=== PATIENT | female | born 1980 | race Caucasian/White ===

== ENCOUNTER 2021-09-22 10:46 | Inpatient (IN) | payer OTHER, SELFPAY ==
--- NOTE | 2021-09-22 11:44 | ED_ITS ---
HPI - Psych General Chief Complaint: Psychiatric Symptoms Stated Complaint: SI Time Seen by Provider: 09/22/21 11:18 Source: patient Mode of arrival: ambulatory Limitations: no limitations History of Present Illness HPI Narrative: inpatient bed search from community per CARE team seen by [facility] weeks of depression trying therapy at home - hx of bipolar doesn't want to get out of bed, taking her medications, making SI statements to family of note has two days left of augmentin for cat bite left thumb complaint: suicidal ideation, feels depressed and anxiety Onset (ago): week(s) (few) Duration: getting worse History of same: Yes Relieving factors: none Exacerbating factors: none Context: other Associated psychiatric symptoms: depression and suicidal ideation Associated symptoms: denies other symptoms Treatments prior to arrival: placed on mental health hold If self harm: admits thoughts of self harm (no plan) Related Data Allergies Allergy/AdvReac Type Severity Reaction Status Date / Time Unable to Assess Allergy Verified 09/22/21 11:39 Review of Systems Review of Systems: Constitutional : No Fever, No Chills ENT/Mouth : No Ear Pain, No Nasal Congestion, No sore throat Eyes: No Eye Pain, No Swelling, No Redness Cardiovascular : No Chest Pain, No SOB Respiratory : No Cough, No Sputum, No Dyspnea Gastrointestinal : No Nausea, No Vomiting, No Diarrhea, No Hematochezia, No Melena Genitourinary : No Dysuria, No Urinary Frequency, No Hematuria Musculoskeletal : No Myalgias Skin : No Skin Lesions, No rash Neuro : No Weakness, No Numbness, No Paresthesias, No Dizziness, No Headache Psych : positive Anxiety, positive Depression, positive SI no HI Heme/Lymph: No Lymphadenopathy Endocrine : No Polyuria, No Polydipsia All other systems reviewed and are negative [facility] Past Medical History Attestation statement: The following information was validated with the patient. Medical History Bipolar 1 disorder Social History Social History (Updated 09/22/21 @ 11:54 by Chata Garcia DO) Patient Tobacco Use Status: Never used Tobacco Advance Directives: No Advance Directives Information Provided: No Physical Exam Vital Signs: Vital Signs: Last Vital Signs Temp 98 F 09/22/21 12:09 Pulse 112 H 09/22/21 12:09 Resp 18 09/22/21 12:09 BP 146/69 H 09/22/21 12:09 Pulse Ox 96 09/22/21 12:09 O2 Del Method 09/22/21 12:09 BMI result Body Mass Index 23.8 Appearance: Alert. Oriented X3. Anxious crying mild acute distress. Eyes: Pupils equal, round and reactive to light. ENT: Pharynx normal. Neck: Normal inspection. Neck supple. CVS: tachycardic heart rate and rhythm. Pulses normal. Respiratory: No respiratory distress. Breath sounds normal. Abdomen: Soft and nontender. Skin: Skin warm and dry. Normal skin color. Normal skin turgor. Extremities: No lower extremity edema. No calf ttp Thumb is healing well Neuro: Oriented X 3. No motor deficit. No sensory deficit. CN 2-12 intact Course Course Course Narrative: Physician observation started at 1155am. Patient placed in physician observation because the patient needed more time for placement given SI and S12 bed search from community. At the time observation was started the patient's vitals were stable, patient is alert and oriented but anxious and upset medications are ordered, Neuro: nonfocal, Lungs clear plan to admit to M5 MDM - Psych MDM Narrative Medical decision making narrative: 41 yo female with hx of bipolar states she has been more depressed, family reports SI statements being made she is already bed search S12 from community at this time will need labs, COVID swab, complete her augmentin x 2 days though cat bite looks well no signs of cellulitis, PO klonopin for anxiety. Patient is more calm after I discussed what she can expect in the pod. Lab Data Result diagrams: 09/22/21 13:28 09/22/21 13:28 Labs: Lab Results 09/22/21 09/22/21 09/22/21 Range/Units 11:47 11:47 13:28 WBC 8.5 (4.8-10.8) X10*3/uL RBC 5.05 (4.20-5.50) X10*6/uL Hgb 14.2 (12.0-16.0) g/dl Hct 44.5 (37.0-47.0) % MCV 88.1 (80.0-98.0) fL MCH 28.1 (27.0-33.0) pg MCHC 31.9 (31.0-35.0) g/dl RDW 13.3 (11.0-16.0) % Plt Count 225 (160-400) X10*3/uL MPV 10.3 (9.4-12.3) fL Immature Gran % (Auto) 0.5 H (0.0-0.4) % Neut % (Auto) 87.9 H (45-73) % Lymph % (Auto) 6.8 L (20-40) % Bollinger % (Auto) 4.4 (2-11) % Eos % (Auto) 0.2 (0-4) % Baso % (Auto) 0.2 (0-2) % Lymph # (Auto) 0.6 L (1.2-4.9) X10*3/uL Bollinger # (Auto) 0.4 (0.1-1.2) X10*3/uL Eos # (Auto) 0.0 (0.0-0.4) X10*3/uL Baso # (Auto) 0.0 (0.0-0.2) X10*3/uL Abs Immat Gran (auto) 0.04 H (0.00-0.03) X10*3/uL Absolute Neuts (auto) 7.5 (2.0-8.3) x10*3/uL Absolute Nucleated RBC 0.000 (0.0-0.012) X10*3/uL Nucleated RBC % (auto) 0.0 (0.0-0.2) /100WBC Sodium (135-145) mmol/L Potassium (3.3-5.1) mmol/L Chloride (96-108) mmol/L Carbon Dioxide (22-29) mmol/L Anion Gap (12-20) BUN (9-16) mg/dL Creatinine (0.5-1.4) mg/dL Estim Creat Clear Calc Estimated GFR Random Glucose (60-115) mg/dL Calcium (8.4-10.2) mg/dL Magnesium (1.6-2.6) mg/dL Total Bilirubin (0.0-1.0) mg/dL Direct Bilirubin (0.0-0.5) mg/dL AST (5-31) U/L ALT (0-31) U/L Alkaline Phosphatase (39-117) U/L Total Protein (6.5-8.0) g/dL Albumin (3.5-5.0) g/dL Beta HCG, Quant mIU/mL Urine Opiates Screen Not Detected (Not Detect) Urine Fentanyl Screen Not Detected (Not Detect) Ur Barbiturates Screen Not Detected (Not Detect) Ur Phencyclidine Scrn Not Detected (Not Detect) Ur Amphetamines Screen Not Detected (Not Detect) U Benzodiazepines Scrn Not Detected (Not Detect) Urine Cocaine Screen Not Detected (Not Detect) U Marijuana (THC) Screen POSITIVE H (Not Detect) Ethyl Alcohol mg/dL COVID-19 (PATRICIA) Negative (Negative) COVID-19 Clin Com See Note 09/22/21 Range/Units 13:28 WBC (4.8-10.8) X10*3/uL RBC (4.20-5.50) X10*6/uL Hgb (12.0-16.0) g/dl Hct (37.0-47.0) % MCV (80.0-98.0) fL MCH (27.0-33.0) pg MCHC (31.0-35.0) g/dl RDW (11.0-16.0) % Plt Count (160-400) X10*3/uL MPV (9.4-12.3) fL Immature Gran % (Auto) (0.0-0.4) % Neut % (Auto) (45-73) % Lymph % (Auto) (20-40) % Bollinger % (Auto) (2-11) % Eos % (Auto) (0-4) % Baso % (Auto) (0-2) % Lymph # (Auto) (1.2-4.9) X10*3/uL Bollinger # (Auto) (0.1-1.2) X10*3/uL Eos # (Auto) (0.0-0.4) X10*3/uL Baso # (Auto) (0.0-0.2) X10*3/uL Abs Immat Gran (auto) (0.00-0.03) X10*3/uL Absolute Neuts (auto) (2.0-8.3) x10*3/uL Absolute Nucleated RBC (0.0-0.012) X10*3/uL Nucleated RBC % (auto) (0.0-0.2) /100WBC Sodium 140 (135-145) mmol/L Potassium 4.5 (3.3-5.1) mmol/L Chloride 104 (96-108) mmol/L Carbon Dioxide 26 (22-29) mmol/L Anion Gap 15 (12-20) BUN 7 L (9-16) mg/dL Creatinine 0.79 (0.5-1.4) mg/dL Estim Creat Clear Calc 74.8 Estimated GFR > 60 Random Glucose 98 (60-115) mg/dL Calcium 9.2 (8.4-10.2) mg/dL Magnesium 1.8 (1.6-2.6) mg/dL Total Bilirubin < 0.2 (0.0-1.0) mg/dL Direct Bilirubin < 0.2 (0.0-0.5) mg/dL AST 13 (5-31) U/L ALT 9 (0-31) U/L Alkaline Phosphatase 74 (39-117) U/L Total Protein 7.4 (6.5-8.0) g/dL Albumin 4.4 (3.5-5.0) g/dL Beta HCG, Quant < 2 mIU/mL Urine Opiates Screen (Not Detect) Urine Fentanyl Screen (Not Detect) Ur Barbiturates Screen (Not Detect) Ur Phencyclidine Scrn (Not Detect) Ur Amphetamines Screen (Not Detect) U Benzodiazepines Scrn (Not Detect) Urine Cocaine Screen (Not Detect) U Marijuana (THC) Screen (Not Detect) Ethyl Alcohol < 10 mg/dL COVID-19 (PATRICIA) (Negative) COVID-19 Clin Com Discharge Plan Discharge Clinical Impression: Suicidal ideation Patient Disposition: Admitted As Inpatient
[2021-09-22 12:09] VITALS: BP 146/69; PULSE 112; RESP 18; TEMP 36.6; O2SAT 96; BMI 23.8
[2021-09-22 12:13] LABS: COVID-19 Test Negative (Negative)
[2021-09-22 12:15] LABS: Amphetamine Screen Urine Not Detected (Not Detect); Barbiturates, Urine Not Detected (Not Detect); Benzodiazepines Screen Urine Not Detected (Not Detect); Cannabinoid Screen Urine POSITIVE (Not Detect); Cocaine Screen Urine Not Detected (Not Detect); Fentanyl, urine Not Detected (Not Detect); Opiate Screen Urine Not Detected (Not Detect); Phencyclidine Screen Urine Not Detected (Not Detect)
[2021-09-22] MEDS: clonazePAM 1 MG TABLET PO (12:16)
[2021-09-22] MEDS: Ondansetron ODT 4 MG TAB.RAPDIS TRANSLINGU (12:22)
[2021-09-22] MEDS: Acetaminophen 325 MG TABLET 650 MG PO (13:04)
[2021-09-22 13:36] LABS: MANUAL DIFF FLAG NO
[2021-09-22 13:53] LABS: Basophils Percent Auto 0.2 % (0-2); Eosinophils Percent Auto 0.2 % (0-4); Hematocrit 44.5 % (37.0-47.0); Hemoglobin 14.2 g/dl (12.0-16.0); Imm Gran Abs Auto 0.04 X10*3/uL (0.00-0.03); Imm Gran Pct Auto 0.5 % (0.0-0.4); Lymphocytes Absolute Auto 0.6 X10*3/uL (1.2-4.9); Lymphocytes Percent Auto 6.8 % (20-40); Mean Corpuscular HGB Conc 31.9 g/dl (31.0-35.0); Mean Corpuscular Hemoglobin 28.1 pg (27.0-33.0); Mean Corpuscular Volume 88.1 fL (80.0-98.0); Mean Platelet Volume 10.3 fL (9.4-12.3); Monocytes Absolute Auto 0.4 X10*3/uL (0.1-1.2); Monocytes Percent Auto 4.4 % (2-11); Neutrophils Absolute Auto 7.5 x10*3/uL (2.0-8.3); Neutrophils Percent Auto 87.9 % (45-73); Platelet Count 225 X10*3/uL (160-400); Red Blood Count 5.05 X10*6/uL (4.20-5.50); Red Cell Distribution Width 13.3 % (11.0-16.0); White Blood Count 8.5 X10*3/uL (4.8-10.8)
[2021-09-22 13:54] LABS: Alanine Aminotransferase 9 U/L (0-31); Albumin Level 4.4 g/dL (3.5-5.0); Alkaline Phosphatase 74 U/L (39-117); Anion Gap 15 (12-20); Aspartate Amino Transferase 13 U/L (5-31); Bilirubin Direct < 0.2 mg/dL (0.0-0.5); Bilirubin Total < 0.2 mg/dL (0.0-1.0); Blood Urea Nitrogen 7 mg/dL (9-16); Calcium 9.2 mg/dL (8.4-10.2); Carbon Dioxide 26 mmol/L (22-29); Chloride 104 mmol/L (96-108); Creatinine Clr Calc Pharmacy 74.8; Estimated Glomerular Filt Rate > 60; Ethanol < 10 mg/dL; Glucose Random 98 mg/dL (60-115); Magnesium 1.8 mg/dL (1.6-2.6); Potassium 4.5 mmol/L (3.3-5.1); Sodium 140 mmol/L (135-145); Total Protein 7.4 g/dL (6.5-8.0)
[2021-09-22 14:01] LABS: HCG Quantitative < 2 mIU/mL
[2021-09-22 16:40] VITALS: BP 116/71; PULSE 90; TEMP 36.2; O2SAT 98
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
[2021-09-22] MEDS: clonazePAM 0.5 MG TABLET PO (22:20)
[2021-09-22] MEDS: Amoxicillin/Potassium Clav 875 MG TABLET PO (22:20)
[2021-09-23 06:00] VITALS: BP 136/68; PULSE 90; RESP 18; TEMP 36.1; O2SAT 99
[2021-09-23] MEDS: Sertraline HCL 50 MG TABLET 150 MG PO (09:09)
[2021-09-23] MEDS: Amoxicillin/Potassium Clav 875 MG TABLET PO ×2 (09:09→20:50)
[2021-09-23] MEDS: clonazePAM 0.5 MG TABLET PO ×2 (09:10→20:50)
[2021-09-23 09:23] LABS: Cholesterol 230 mg/dL; Estimated Average Glucose 91 mg/dL; HDL Cholesterol 50 mg/dL; Hemoglobin A1c % 4.8 %; LDL Cholesterol Calculated 160 mg/dl; Triglycerides 100 mg/dL
[2021-09-23 09:45] LABS: Free T4 (Free Thyroxine) 0.99 ng/dL (0.71-1.85); Thyroid Stimulating Hormone 0.98 uIU/mL (0.32-4.0)
[2021-09-23 09:55] LABS: Folate 15.3 ng/mL (> or = 4.0); Vitamin B12 363 pg/mL (200-900)
--- NOTE | 2021-09-23 10:00 | ECG_ITS ---
Test Reason : qtc check Blood Pressure : / mmHG Vent. Rate : 060 BPM Atrial Rate : 060 BPM P-R Int : 132 ms QRS Dur : 074 ms QT Int : 424 ms P-R-T Axes : 027 034 026 degrees QTc Int : 424 ms Normal sinus rhythm Normal ECG No previous ECGs available Referred By: Jayshree Presley Electronically Signed By:COLEEN BARKER
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
[2021-09-23] MEDS: lamoTRIgine 100 MG TABLET 200 MG PO (20:50)
[2021-09-24 06:00] VITALS: BP 120/74; PULSE 92; TEMP 36.4; O2SAT 100
[2021-09-24 07:00] VITALS: BMI 23.8
[2021-09-24] MEDS: Sertraline HCL 50 MG TABLET 150 MG PO (08:48)
[2021-09-24] MEDS: Amoxicillin/Potassium Clav 875 MG TABLET PO (08:48)
--- NOTE | 2021-09-24 10:30 | HO.PSYCHPN ---
Subjective Subjective Date of Service: 09/24/21 Reason For Visit: SI Interim History: Feeling a little better today. Discussed medication management and patient agrees to trial of lithium. Reviewed risks/side effects of this medication and patient understood and agrees to trial. And handbook writer and social sciences research scientist engaged in CBT therapy session with patient felt it was helpful and agreed to do homework Mental Status Exam Mental Status Exam Narrative: Pt is alert and oriented; behavior is cooperative, friendly; more calm, not tearful; dressed in hospital attire with hair neatly pulled back, adequate hygiene; mood is described as little better and affect congruent, more calm; eye contact appropriate; Speech is normal rate, volume and prosody and not pressured; no psychomotor agitation/retardation present; thought process is organized and goal directed; Thought content is on depression, lonliness, treatment; otherwise pertinent to relevant topics and without any delusional content, paranoid ideations or grandiosity; denies any SI/HI. There is no evidence of perceptual disturbance. Patients insight and judgment are impaired but improved. Diagnostics Vital Signs (24Hr): Vital Signs - 24 hr 09/24/21 06:00 Temperature 97.5 F Pulse Rate 92 Blood Pressure 120/74 Pulse Oximetry 100 BMI result Body Mass Index 23.8 Labs Results: 09/22/21 13:28 09/22/21 13:28 Labs: Laboratory Results - last 48 hr 09/22/21 09/22/21 09/22/21 11:47 11:47 13:28 WBC 8.5 RBC 5.05 Hgb 14.2 Hct 44.5 MCV 88.1 MCH 28.1 MCHC 31.9 RDW 13.3 Plt Count 225 MPV 10.3 Immature Gran % (Auto) 0.5 H Neut % (Auto) 87.9 H Lymph % (Auto) 6.8 L [place] % (Auto) 4.4 Eos % (Auto) 0.2 Baso % (Auto) 0.2 Lymph # (Auto) 0.6 L [place] # (Auto) 0.4 Eos # (Auto) 0.0 Baso # (Auto) 0.0 Abs Immat Gran (auto) 0.04 H Absolute Neuts (auto) 7.5 Absolute Nucleated RBC 0.000 Nucleated RBC % (auto) 0.0 Sodium Potassium Chloride Carbon Dioxide Anion Gap BUN Creatinine Estim Creat Clear Calc Estimated GFR Random Glucose Estimat Average Glucose Hemoglobin A1c % Calcium Magnesium Total Bilirubin Direct Bilirubin AST ALT Alkaline Phosphatase Total Protein Albumin Triglycerides Cholesterol LDL Cholesterol, Calc HDL Cholesterol Vitamin B12 Folate TSH Free T4 Beta HCG, Quant Urine Opiates Screen Not Detected Urine Fentanyl Screen Not Detected Ur Barbiturates Screen Not Detected Ur Phencyclidine Scrn Not Detected Ur Amphetamines Screen Not Detected U Benzodiazepines Scrn Not Detected Urine Cocaine Screen Not Detected U Marijuana (THC) Screen POSITIVE H Ethyl Alcohol COVID-19 (PATRICIA) Negative COVID-19 Clin Com See Note 09/22/21 09/23/21 09/23/21 13:28 08:12 08:12 WBC RBC Hgb Hct MCV MCH MCHC RDW Plt Count MPV Immature Gran % (Auto) Neut % (Auto) Lymph % (Auto) [place] % (Auto) Eos % (Auto) Baso % (Auto) Lymph # (Auto) [place] # (Auto) Eos # (Auto) Baso # (Auto) Abs Immat Gran (auto) Absolute Neuts (auto) Absolute Nucleated RBC Nucleated RBC % (auto) Sodium 140 Potassium 4.5 Chloride 104 Carbon Dioxide 26 Anion Gap 15 BUN 7 L Creatinine 0.79 Estim Creat Clear Calc 74.8 Estimated GFR > 60 Random Glucose 98 Estimat Average Glucose 91 Hemoglobin A1c % 4.8 Calcium 9.2 Magnesium 1.8 2.0 Total Bilirubin < 0.2 Direct Bilirubin < 0.2 AST 13 ALT 9 Alkaline Phosphatase 74 Total Protein 7.4 Albumin 4.4 Triglycerides 100 Cholesterol 230 LDL Cholesterol, Calc 160 HDL Cholesterol 50 Vitamin B12 Folate TSH 0.98 Free T4 0.99 Beta HCG, Quant < 2 Urine Opiates Screen Urine Fentanyl Screen Ur Barbiturates Screen Ur Phencyclidine Scrn Ur Amphetamines Screen U Benzodiazepines Scrn Urine Cocaine Screen U Marijuana (THC) Screen Ethyl Alcohol < 10 COVID-19 (PATRICIA) COVID-19 Clin Com 09/23/21 08:12 WBC RBC Hgb Hct MCV MCH MCHC RDW Plt Count MPV Immature Gran % (Auto) Neut % (Auto) Lymph % (Auto) [place] % (Auto) Eos % (Auto) Baso % (Auto) Lymph # (Auto) [place] # (Auto) Eos # (Auto) Baso # (Auto) Abs Immat Gran (auto) Absolute Neuts (auto) Absolute Nucleated RBC Nucleated RBC % (auto) Sodium Potassium Chloride Carbon Dioxide Anion Gap BUN Creatinine Estim Creat Clear Calc Estimated GFR Random Glucose Estimat Average Glucose Hemoglobin A1c % Calcium Magnesium Total Bilirubin Direct Bilirubin AST ALT Alkaline Phosphatase Total Protein Albumin Triglycerides Cholesterol LDL Cholesterol, Calc HDL Cholesterol Vitamin B12 363 Folate 15.3 TSH Free T4 Beta HCG, Quant Urine Opiates Screen Urine Fentanyl Screen Ur Barbiturates Screen Ur Phencyclidine Scrn Ur Amphetamines Screen U Benzodiazepines Scrn Urine Cocaine Screen U Marijuana (THC) Screen Ethyl Alcohol COVID-19 (PATRICIA) COVID-19 Clin Com Medications Medications Current Medications Acetaminophen (Acetaminophen 325 Mg Tablet) 650 mg PO Q6H PRN PRN Reason: Headache/Pain Mild Scale (1-3) Al Hydroxide/Mg Hydroxide (Magnesium Hydrox/Alum Hydrox 30 Ml Oral.Susp) 30 ml PO Q6H PRN PRN Reason: Heartburn/Nausea Clonazepam (Clonazepam 0.5 Mg Tablet) 0.5 mg PO BID PRN PRN Reason: anxiety Last Admin: 09/23/21 20:50 Dose: 0.5 mg Clonidine HCl (Clonidine Hcl 0.1 Mg Tablet) 0.1 mg PO Q4H PRN; Protocol PRN Reason: anxiety/insomnia Lamotrigine (Lamotrigine 100 Mg Tablet) 200 mg PO BEDTIME [facility] Last Admin: 09/23/21 20:50 Dose: 200 mg Magnesium Hydroxide (Milk Of Magnesia 30 Ml Oral.Susp) 30 ml PO DAILY PRN PRN Reason: Constipation Sertraline HCl (Sertraline Hcl 50 Mg Tablet) 150 mg PO DAILY [facility] Last Admin: 09/24/21 08:48 Dose: 150 mg Trazodone HCl (Trazodone Hcl 50 Mg Tablet) 50 mg PO BEDTIME PRN PRN Reason: Insomnia Allergies Allergies Allergy/AdvReac Type Severity Reaction Status Date / Time hydroxyzine [From Atarax] AdvReac Unknown Insomnia Verified 09/22/21 19:14 Assessment & Plan Assessment & Plan (1) Bipolar disorder current episode depressed: Status: Acute Code(s): F31.30 - Bipolar disorder, current episode depressed, mild or moderate severity, unspecified Plan Patient is a 41-year-old female with history of bipolar disorder who presents for depression and overall only panic. Patient reports that on Lamictal and Zoloft she had been mostly stable for several years. -patient has been partially treated on Lamictal and Zoloft and though stable has remained depressed -currently getting over severe depression and now having panic attacks in the face of psychosocial stressors and possibly under dosed -currently no SI however genuine suicide attempt a few months ago with patient failing to reach out for help prior to or after were -patient open to medication management and considering lithium 04/24 Little better; agrees to lithium trial; engaging in CBT therapy while on the unit Plan: CV Q 15 minute checks START [place] ER 300mg qhs Continue Lamictal 200 mg q.h.s. Continue Zoloft 150 mg daily Will consider lithium or other mood stabilizer as patient's depression is poorly controlled and she recently had a manic episode I spent minutes with the patient and/or on the patient floor today, greater than?50% of which was spent counseling/coordinating care. Patient educated on: diagnosis, medication risk/benefits and therapeutic strategies Informed Consent: understands Reason for contiued inpatient stay Substantial Risk for: rapid decompensation
[2021-09-24 18:00] VITALS: BP 120/76; PULSE 92; TEMP 36.5; O2SAT 99
[2021-09-24] MEDS: Lithium Carbonate ER 300 MG TABLET.ER PO (21:29)
[2021-09-24] MEDS: lamoTRIgine 100 MG TABLET 200 MG PO (21:30)
[2021-09-25 06:00] VITALS: BP 113/75; PULSE 90; TEMP 37; O2SAT 97
[2021-09-25] MEDS: Sertraline HCL 50 MG TABLET 150 MG PO (09:15)
[2021-09-25] MEDS: Ondansetron ODT 4 MG TAB.RAPDIS TRANSLINGU (12:47)
[2021-09-25] MEDS: Loperamide HCl 2 MG CAPSULE PO (12:47)
[2021-09-25 16:32] VITALS: BP 133/86; PULSE 92; TEMP 36.6
--- NOTE | 2021-09-25 17:40 | P.PNPSI_ITS ---
Subjective Subjective Date of Service: 09/25/21 Reason For Visit: SI Interim History: Patient nauseous today but says that happens with anxiety. Overall no problems with lithium trial. Feels more calm today and more optimistic. Thought through and discussed relationship with her ex with social science research assistant and is getting more comfortable with navigating this uncertain relationship. Patient did some CBT exercises on her own and will continue to do so. At this time will leave lithium as is Mental Status Exam Mental Status Exam Narrative: Pt is alert and oriented; behavior is cooperative, friendly; more calm, not tearful; dressed in hospital attire with hair neatly pulled back, adequate hygiene; mood is described as little better and affect congruent, more calm; eye contact appropriate; Speech is normal rate, volume and prosody and not pressured; no psychomotor agitation/retardation present; thought process is organized and goal directed; Thought content is on depression, lonliness, treatment; otherwise pertinent to relevant topics and without any delusional co ntent, paranoid ideations or grandiosity; denies any SI/HI. There is no evidence of perceptual disturbance. Patients insight and judgment are impaired but improved. Diagnostics Vital Signs (24Hr): Vital Signs - 24 hr 09/24/21 18:00 09/25/21 06:00 09/25/21 16:32 Temperature 97.7 F 98.6 F 98 F Pulse Rate 92 90 92 Blood Pressure 120/76 113/75 133/86 Pulse Oximetry 99 97 BMI result Body Mass Index 23.8 Labs Results: 09/22/21 13:28 09/22/21 13:28 Medications Medications Current Medications Acetaminophen (Acetaminophen 325 Mg Tablet) 650 mg PO Q6H PRN PRN Reason: Headache/Pain Mild Scale (1-3) Al Hydroxide/Mg Hydroxide (Magnesium Hydrox/Alum Hydrox 30 Ml Oral.Susp) 30 ml PO Q6H PRN PRN Reason: Heartburn/Nausea Clonazepam (Clonazepam 0.5 Mg Tablet) 0.5 mg PO BID PRN PRN Reason: anxiety Last Admin: 09/23/21 20:50 Dose: 0.5 mg Clonidine HCl (Clonidine Hcl 0.1 Mg Tablet) 0.1 mg PO Q4H PRN; Protocol PRN Reason: anxiety/insomnia Lamotrigine (Lamotrigine 100 Mg Tablet) 200 mg PO BEDTIME [facility] Last Admin: 09/24/21 21:30 Dose: 200 mg [place] Carbonate ([place] Carbonate Er 300 Mg Tablet.Er) 300 mg PO BEDTIME [facility] Last Admin: 09/24/21 21:29 Dose: 300 mg Loperamide HCl (Loperamide Hcl 2 Mg Capsule) 2 mg PO Q6H PRN PRN Reason: Loose Stool Last Admin: 09/25/21 12:47 Dose: 2 mg Magnesium Hydroxide (Milk Of Magnesia 30 Ml Oral.Susp) 30 ml PO DAILY PRN PRN Reason: Constipation Ondansetron HCl (Ondansetron Odt 4 Mg Tab.Rapdis) 4 mg TRANSLINGU Q6H PRN PRN Reason: Nausea Last Admin: 09/25/21 12:47 Dose: 4 mg Sertraline HCl (Sertraline Hcl 50 Mg Tablet) 150 mg PO DAILY [facility] Last Admin: 09/25/21 09:15 Dose: 150 mg Trazodone HCl (Trazodone Hcl 50 Mg Tablet) 50 mg PO BEDTIME PRN PRN Reason: Insomnia Allergies Allergies Allergy/AdvReac Type Severity Reaction Status Date / Time hydroxyzine [From Atarax] AdvReac Unknown Insomnia Verified 09/22/21 19:14 Assessment & Plan Assessment & Plan (1) Bipolar disorder current episode depressed: Status: Acute Code(s): F31.30 - Bipolar disorder, current episode depressed, mild or moderate severity, unspecified Plan Patient is a 41-year-old female with history of bipolar disorder who presents for depression and overall only panic. Patient reports that on Lamictal and Zoloft she had been mostly stable for several years. -patient has been partially treated on Lamictal and Zoloft and though stable has remained depressed -currently getting over severe depression and now having panic attacks in the face of psychosocial stressors and possibly under dosed -currently no SI however genuine suicide attempt a few months ago with patient failing to reach out for help prior to or after were -patient open to medication management and considering lithium 04/24 Little better; agrees to lithium trial; engaging in CBT therapy while on the unit 04/25 will leave lithium at current dose. Patient has been mild to moderately stable on Lamictal; perhaps she will be able to tolerate a lower dose of lithium which can help mitigate risk of side effects Plan: CV Q 15 minute checks Continue [place] ER 300mg qhs Continue Lamictal 200 mg q.h.s. Continue Zoloft 150 mg daily Will consider lithium or other mood stabilizer as patient's depression is poorly controlled and she recently had a manic episode I spent minutes with the patient and/or on the patient floor today, greater than?50% of which was spent counseling/coordinating care. Patient educated on: diagnosis, medication risk/benefits and therapeutic strategies Informed Consent: understands Reason for contiued inpatient stay Substantial Risk for: rapid decompensation
[2021-09-25] MEDS: lamoTRIgine 100 MG TABLET 200 MG PO (20:30)
[2021-09-25] MEDS: Lithium Carbonate ER 300 MG TABLET.ER PO (20:30)
[2021-09-26 06:00] VITALS: BP 119/77; PULSE 82; RESP 14; TEMP 36.3; O2SAT 99
[2021-09-26] MEDS: Sertraline HCL 50 MG TABLET 150 MG PO (08:31)
--- NOTE | 2021-09-26 13:50 | HO.PSYCHPN ---
Subjective Subjective Date of Service: 09/26/21 Reason For Visit: SI Interim History: Patient in good mood. 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 Patient has been using coping skills well. Denies any SI or HI. Medications are well tolerated. Discussed lithium and patient would like to increase it to 600 mg; while she understands that it may be possible for her to do well on only 300 mg, she does not want to risk being underdosed. Topographic Computator and patient engaged in another CBT therapy session and analyzed her core belief that she is unloveablel. Patient was very grateful for the exercise and said she felt tremendous freedom from it. During the session it was disclosed that her severely addicted parents Abandoned both her and her brother, when she was 6-month-old and her brother 4yo. Although she has believed it was her fault that they left, she started to realize that this belief was encouraged by her brother, who blamed her their parents leaving; However she also was able to see that from his 4-year-old perspective, the coinciding experience of a new baby in the house and his parents leaving was enough for his 4yo mind to decide the new baby was the cause. This understanding also helped her have much more compassion for her brother who has rather mean to her over the years. Mental Status Exam Mental Status Exam Narrative: Pt is alert and oriented; behavior is cooperative, friendly; calm; dressed in casual attire with hair neatly pulled back, good hygiene; mood is described as good and affect congruent; eye contact appropriate; Speech is normal rate, volume and prosody and not pressured; no psychomotor agitation/retardation present; thought process is organized and goal directed; Thought content is on processing her trauma hx; treatment; otherwise pertinent to relevant topics and without any delusional content, paranoid ideations or grandiosity; denies any SI/HI. There is no evidence of perceptual disturbance. Patients insight and judgment are good. Diagnostics Vital Signs (24Hr): Vital Signs - 24 hr 09/25/21 16:32 09/26/21 06:00 Temperature 98 F 97.3 F Pulse Rate 92 82 Respiratory Rate 14 Blood Pressure 133/86 119/77 Pulse Oximetry 99 Oxygen Delivery Method Room Air BMI result Body Mass Index 23.8 Labs Results: 09/22/21 13:28 09/22/21 13:28 Medications Medications Current Medications Acetaminophen (Acetaminophen 325 Mg Tablet) 650 mg PO Q6H PRN PRN Reason: Headache/Pain Mild Scale (1-3) Al Hydroxide/Mg Hydroxide (Magnesium Hydrox/Alum Hydrox 30 Ml Oral.Susp) 30 ml PO Q6H PRN PRN Reason: Heartburn/Nausea Clonazepam (Clonazepam 0.5 Mg Tablet) 0.5 mg PO BID PRN PRN Reason: anxiety Last Admin: 09/23/21 20:50 Dose: 0.5 mg Clonidine HCl (Clonidine Hcl 0.1 Mg Tablet) 0.1 mg PO Q4H PRN; Protocol PRN Reason: anxiety/insomnia Lamotrigine (Lamotrigine 100 Mg Tablet) 200 mg PO BEDTIME [facility] Last Admin: 09/25/21 20:30 Dose: 200 mg [place] Carbonate ([place] Carbonate Er 300 Mg Tablet.Er) 300 mg PO BEDTIME [facility] Last Admin: 09/25/21 20:30 Dose: 300 mg Loperamide HCl (Loperamide Hcl 2 Mg Capsule) 2 mg PO Q6H PRN PRN Reason: Loose Stool Last Admin: 09/25/21 12:47 Dose: 2 mg Magnesium Hydroxide (Milk Of Magnesia 30 Ml Oral.Susp) 30 ml PO DAILY PRN PRN Reason: Constipation Ondansetron HCl (Ondansetron Odt 4 Mg Tab.Rapdis) 4 mg TRANSLINGU Q6H PRN PRN Reason: Nausea Last Admin: 09/25/21 12:47 Dose: 4 mg Sertraline HCl (Sertraline Hcl 50 Mg Tablet) 150 mg PO DAILY [facility] Last Admin: 09/26/21 08:31 Dose: 150 mg Trazodone HCl (Trazodone Hcl 50 Mg Tablet) 50 mg PO BEDTIME PRN PRN Reason: Insomnia Allergies Allergies Allergy/AdvReac Type Severity Reaction Status Date / Time hydroxyzine [From Atarax] AdvReac Unknown Insomnia Verified 09/22/21 19:14 Assessment & Plan Assessment & Plan (1) Bipolar disorder current episode depressed: Status: Acute Code(s): F31.30 - Bipolar disorder, current episode depressed, mild or moderate severity, unspecified Plan Patient is a 41-year-old female with history of bipolar disorder who presents for depression and overall only panic. Patient reports that on Lamictal and Zoloft she had been mostly stable for several years. -patient has been partially treated on Lamictal and Zoloft and though stable has remained depressed -currently getting over severe depression and now having panic attacks in the face of psychosocial stressors and possibly under dosed -currently no SI however genuine suicide attempt a few months ago with patient failing to reach out for help prior to or after were -patient open to medication management and considering lithium 04/24 Little better; agrees to lithium trial; engaging in CBT therapy while on the unit 04/25 will leave lithium at current dose. Patient has been mild to moderately stable on Lamictal; perhaps she will be able to tolerate a lower dose of lithium which can help mitigate risk of side effects 04/26 Patient reports good mood, anxiety much better and patient remains eager and invested in treatment. No SI; agrees to increased lithium Plan: CV Q 15 minute checks Increaed to [place] ER 600mg qhs Continue Lamictal 200 mg q.h.s. Continue Zoloft 150 mg daily Will consider lithium or other mood stabilizer as patient's depression is poorly controlled and she recently had a manic episode I spent minutes with the patient and/or on the patient floor today, greater than?50% of which was spent counseling/coordinating care. Patient educated on: diagnosis and medication risk/benefits Informed Consent: understands Reason for contiued inpatient stay Substantial Risk for: stable for discharge
[2021-09-26 16:27] VITALS: BP 152/91; PULSE 103; RESP 16; TEMP 36.4; O2SAT 99
[2021-09-26] MEDS: Lithium Carbonate ER 300 MG TABLET.ER 600 MG PO (21:30)
[2021-09-26] MEDS: lamoTRIgine 100 MG TABLET 200 MG PO (21:30)
[2021-09-27 06:00] VITALS: BP 118/79; PULSE 92; RESP 16; TEMP 36.1; O2SAT 99
[2021-09-27] MEDS: Sertraline HCL 50 MG TABLET 150 MG PO (09:40)
[2021-09-27] MEDS: Ondansetron ODT 4 MG TAB.RAPDIS TRANSLINGU (10:49)
--- NOTE | 2021-09-27 16:06 | P.PNPSI_ITS ---
Subjective Subjective Date of Service: 09/27/21 Reason For Visit: SI Interim History: Patient reports good mood; tolerating increase lithium well. Shared with internal communications writer that she gave her ex-, with whom She is considering getting back together, and ultimatum that he needs to decide whether not he fully wants to be with her or not. Patient felt empowered and confident and that she deserves to have a commitment from him. Patient said she did not even feel anxious making this ultimatum because she has come to the conclusion that it is the right thing for her to do. Patient says she is feeling ready for discharge and wanted to discuss plans. Mental Status Exam Mental Status Exam Narrative: Pt is alert and oriented; behavior is cooperative, friendly; calm; dressed in casual attire with hair neatly pulled back, good hygiene; mood is described as good and affect congruent; eye contact appropriate; Speech is normal rate, volume and prosody and not pressured; no psychomotor agitation/retardation present; thought process is organized and goal directed; Thought content is on processing her trauma hx; treatment; otherwise pertinent to relevant topics and without any delusional content, paranoid ideations or grandiosity; denies any SI/HI. There is no evidence of perceptual disturbance. Patients insight and judgment are good. Diagnostics Vital Signs (24Hr): Vital Signs - 24 hr 09/26/21 16:27 09/27/21 06:00 Temperature 97.6 F 97 F Pulse Rate 103 H 92 Respiratory Rate 16 16 Blood Pressure 152/91 H 118/79 Pulse Oximetry 99 99 Oxygen Delivery Method Room Air Room Air BMI result Body Mass Index 23.8 Labs Results: 09/22/21 13:28 09/22/21 13:28 Medications Medications Current Medications Acetaminophen (Acetaminophen 325 Mg Tablet) 650 mg PO Q6H PRN PRN Reason: Headache/Pain Mild Scale (1-3) Al Hydroxide/Mg Hydroxide (Magnesium Hydrox/Alum Hydrox 30 Ml Oral.Susp) 30 ml PO Q6H PRN PRN Reason: Heartburn/Nausea Clonazepam (Clonazepam 0.5 Mg Tablet) 0.5 mg PO BID PRN PRN Reason: anxiety Last Admin: 09/23/21 20:50 Dose: 0.5 mg Clonidine HCl (Clonidine Hcl 0.1 Mg Tablet) 0.1 mg PO Q4H PRN; Protocol PRN Reason: anxiety/insomnia Lamotrigine (Lamotrigine 100 Mg Tablet) 200 mg PO BEDTIME [facility] Last Admin: 09/26/21 21:30 Dose: 200 mg [place] Carbonate ([place] Carbonate Er 300 Mg Tablet.Er) 600 mg PO BEDTIME [facility] Last Admin: 09/26/21 21:30 Dose: 600 mg Loperamide HCl (Loperamide Hcl 2 Mg Capsule) 2 mg PO Q6H PRN PRN Reason: Loose Stool Last Admin: 09/25/21 12:47 Dose: 2 mg [place] Hydroxide (Milk Of Magnesia 30 Ml Oral.Susp) 30 ml PO DAILY PRN PRN Reason: Constipation Ondansetron HCl (Ondansetron Odt 4 Mg Tab.Rapdis) 4 mg TRANSLINGU Q6H PRN PRN Reason: Nausea Last Admin: 09/27/21 10:49 Dose: 4 mg Sertraline HCl (Sertraline Hcl 50 Mg Tablet) 150 mg PO DAILY [facility] Last Admin: 09/27/21 09:40 Dose: 150 mg Trazodone HCl (Trazodone Hcl 50 Mg Tablet) 50 mg PO BEDTIME PRN PRN Reason: Insomnia Allergies Allergies Allergy/AdvReac Type Severity Reaction Status Date / Time hydroxyzine [From Atarax] AdvReac Unknown Insomnia Verified 09/22/21 19:14 Assessment & Plan Assessment & Plan (1) Bipolar disorder current episode depressed: Status: Acute Code(s): F31.30 - Bipolar disorder, current episode depressed, mild or moderate severity, unspecified Plan Patient is a 41-year-old female with history of bipolar disorder who presents for depression and overall only panic. Patient reports that on Lamictal and Zoloft she had been mostly stable for several years. -patient has been partially treated on Lamictal and Zoloft and though stable has remained depressed -currently getting over severe depression and now having panic attacks in the face of psychosocial stressors and possibly under dosed -currently no SI however genuine suicide attempt a few months ago with patient failing to reach out for help prior to or after were -patient open to medication management and considering lithium 04/24 Little better; agrees to lithium trial; engaging in CBT therapy while on the unit 04/25 will leave lithium at current dose. Patient has been mild to moderately stable on Lamictal; perhaps she will be able to tolerate a lower dose of lithium which can help mitigate risk of side effects 04/26 Patient reports good mood, anxiety much better and patient remains eager and invested in treatment. No SI; agrees to increased lithium 04/27 Good mood, using coping skills, no SI/HI/AVH; increased self-confidence. Patient is wanted to discuss discharge soon. She agrees to get follow-up labs as an outpatient Plan: CV Q 15 minute checks Continue [place] ER 600mg qhs Continue Lamictal 200 mg q.h.s. Continue Zoloft 150 mg daily Will consider lithium or other mood stabilizer as patient's depression is poorly controlled and she recently had a manic episode I spent minutes with the patient and/or on the patient floor today, greater than?50% of which was spent counseling/coordinating care. Patient educated on: diagnosis and medication risk/benefits Informed Consent: understands Reason for contiued inpatient stay Substantial Risk for: stable for discharge
[2021-09-27 17:40] VITALS: BP 122/80; PULSE 90; RESP 16; TEMP 36.6; O2SAT 99
[2021-09-27 20:55] VITALS: BP 136/76; PULSE 91
[2021-09-27] MEDS: lamoTRIgine 100 MG TABLET 200 MG PO (20:59)
[2021-09-27] MEDS: cloNIDine HCL 0.1 MG TABLET PO (20:59)
[2021-09-27] MEDS: Lithium Carbonate ER 300 MG TABLET.ER 600 MG PO (21:00)
[2021-09-28 06:00] VITALS: BP 111/76; PULSE 101; RESP 18; TEMP 36.1; O2SAT 98
[2021-09-28] MEDS: Sertraline HCL 50 MG TABLET 150 MG PO (08:04)
[2021-09-28 08:45] LABS: Blood Urea Nitrogen 13 mg/dL (9-16); Creatinine Clr Calc Pharmacy 72.1; Estimated Glomerular Filt Rate > 60
[2021-09-28 08:49] LABS: Lithium 0.58 mmol/L (0.60-1.20)
[2021-09-28] MEDS: Ondansetron ODT 4 MG TAB.RAPDIS TRANSLINGU (12:58)
--- NOTE | 2021-09-28 16:45 | HO.PSYCHPN ---
Subjective Subjective Date of Service: 09/28/21 Reason For Visit: SI Interim History: Good mood, tolerating medications, using coping skills; reviewed labs with patient and discussed kidney function, thyroid and lithium level. Discussed patient's continued use of CBT skills and how it is helping her process her feelings. Patient talking about pending discharge and feels good about discharging this Tuesday. Optimistic. Mental Status Exam Mental Status Exam Narrative: Pt is alert and oriented; behavior is cooperative, friendly; calm; dressed in casual attire with hair neatly pulled back, good hygiene; mood is described as good and affect congruent; eye contact appropriate; Speech is normal rate, volume and prosody and not pressured; no psychomotor agitation/retardation present; thought process is organized and goal directed; Thought content is on using coping skills, navigating relationship w/ ex; processing her trauma hx; treatment; otherwise pertinent to relevant topics and without any delusional content, paranoid ideations or grandiosity; denies any SI/HI. There is no evidence of perceptual disturbance. Patients insight and judgment are good. Diagnostics Vital Signs (24Hr): Vital Signs - 24 hr 09/27/21 17:40 09/27/21 20:55 09/28/21 06:00 Temperature 97.8 F 97 F Pulse Rate 90 91 101 H Respiratory Rate 16 18 Blood Pressure 122/80 136/76 111/76 Pulse Oximetry 99 98 Oxygen Delivery Method Room Air Room Air BMI result Body Mass Index 23.8 Labs Results: 09/22/21 13:28 09/28/21 08:00 Labs: Laboratory Results - last 48 hr 09/28/21 09/28/21 08:00 08:00 BUN 13 D Creatinine 0.82 Estim Creat Clear Calc 72.1 Estimated GFR > 60 TSH 0.60 [place] 0.58 L Medications Medications Current Medications Acetaminophen (Acetaminophen 325 Mg Tablet) 650 mg PO Q6H PRN PRN Reason: Headache/Pain Mild Scale (1-3) Al Hydroxide/Mg Hydroxide (Magnesium Hydrox/Alum Hydrox 30 Ml Oral.Susp) 30 ml PO Q6H PRN PRN Reason: Heartburn/Nausea Clonidine HCl (Clonidine Hcl 0.1 Mg Tablet) 0.1 mg PO Q4H PRN; Protocol PRN Reason: anxiety/insomnia Last Admin: 09/27/21 20:59 Dose: 0.1 mg Lamotrigine (Lamotrigine 100 Mg Tablet) 200 mg PO BEDTIME CHRISTIANO Last Admin: 09/27/21 20:59 Dose: 200 mg [place] Carbonate ([place] Carbonate Er 300 Mg Tablet.Er) 600 mg PO BEDTIME CHRISTIANO Last Admin: 09/27/21 21:00 Dose: 600 mg Loperamide HCl (Loperamide Hcl 2 Mg Capsule) 2 mg PO Q6H PRN PRN Reason: Loose Stool Last Admin: 09/25/21 12:47 Dose: 2 mg Magnesium Hydroxide (Milk Of Magnesia 30 Ml Oral.Susp) 30 ml PO DAILY PRN PRN Reason: Constipation Ondansetron HCl (Ondansetron Odt 4 Mg Tab.Rapdis) 4 mg TRANSLINGU Q6H PRN PRN Reason: Nausea Last Admin: 09/28/21 12:58 Dose: 4 mg Sertraline HCl (Sertraline Hcl 50 Mg Tablet) 150 mg PO DAILY [facility] Last Admin: 09/28/21 08:04 Dose: 150 mg Trazodone HCl (Trazodone Hcl 50 Mg Tablet) 50 mg PO BEDTIME PRN PRN Reason: Insomnia Allergies Allergies Allergy/AdvReac Type Severity Reaction Status Date / Time hydroxyzine [From Atarax] AdvReac Unknown Insomnia Verified 09/22/21 19:14 Assessment & Plan Assessment & Plan (1) Bipolar disorder current episode depressed: Status: Acute Code(s): F31.30 - Bipolar disorder, current episode depressed, mild or moderate severity, unspecified Plan Patient is a 41-year-old female with history of bipolar disorder who presents for depression and overall only panic. Patient reports that on Lamictal and Zoloft she had been mostly stable for several years. -patient has been partially treated on Lamictal and Zoloft and though stable has remained depressed -currently getting over severe depression and now having panic attacks in the face of psychosocial stressors and possibly under dosed -currently no SI however genuine suicide attempt a few months ago with patient failing to reach out for help prior to or after were -patient open to medication management and considering lithium 04/24 Little better; agrees to lithium trial; engaging in CBT therapy while on the unit 04/25 will leave lithium at current dose. Patient has been mild to moderately stable on Lamictal; perhaps she will be able to tolerate a lower dose of lithium which can help mitigate risk of side effects 04/26 Patient reports good mood, anxiety much better and patient remains eager and invested in treatment. No SI; agrees to increased lithium 04/27 Good mood, using coping skills, no SI/HI/AVH; increased self-confidence. Patient is wanted to discuss discharge soon. She agrees to get follow-up labs as an outpatient 04/28 doing well; labs within normal limits; good mood no SI tolerating medications. Plan: CV Q 15 minute checks Continue [place] ER 600mg qhs Continue Lamictal 200 mg q.h.s. Continue Zoloft 150 mg daily Will consider lithium or other mood stabilizer as patient's depression is poorly controlled and she recently had a manic episode I spent minutes with the patient and/or on the patient floor today, greater than?50% of which was spent counseling/coordinating care. Patient educated on: diagnosis, medication risk/benefits, therapeutic strategies and medical condition Informed Consent: understands Reason for contiued inpatient stay Substantial Risk for: stable for discharge
[2021-09-28 16:55] VITALS: BP 143/77; PULSE 77; TEMP 36.4
[2021-09-28] MEDS: lamoTRIgine 100 MG TABLET 200 MG PO (20:56)
[2021-09-28] MEDS: Lithium Carbonate ER 300 MG TABLET.ER 600 MG PO (20:56)
[2021-09-28] MEDS: cloNIDine HCL 0.1 MG TABLET PO (20:59)
[2021-09-29 06:00] VITALS: BP 134/80; PULSE 72; TEMP 36.6; O2SAT 99
[2021-09-29] MEDS: Sertraline HCL 50 MG TABLET 150 MG PO (09:18)
--- NOTE | 2021-09-29 16:40 | HO.PSYCHPN ---
Subjective Subjective Date of Service: 09/29/21 Reason For Visit: SI Interim History: Patient had challenging phone call with her ex and was feeling anxious. She was going to get a p.r.n. but instead she went to her journal and wrote down all her thoughts. Met with patient after this occurred and patient showed screen writer her journal entries and how she was able to process her feelings and significantly decrease her anxiety, not needing a p.r.n.. Patient was very proud of herself. Also even though she had some feelings of being abandoned by her ex partner, she did not feel unloveable but rather that this was more of his problem than some defect in her, a significant realization. Mental Status Exam Mental Status Exam Narrative: Pt is alert and oriented; behavior is cooperative, friendly; calm; dressed in casual attire with hair neatly pulled back, good hygiene; mood is described as good and affect congruent; eye contact appropriate; Speech is normal rate, volume and prosody and not pressured; no psychomotor agitation/retardation present; thought process is organized and goal directed; Thought content is on using coping skills, navigating relationship w/ ex; processing her trauma hx; treatment; otherwise pertinent to relevant topics and without any delusional content, paranoid ideations or grandiosity; denies any SI/HI. There is no evidence of perceptual disturbance. Patients insight and judgment are good. Diagnostics Vital Signs (24Hr): Vital Signs - 24 hr 09/28/21 16:55 09/29/21 06:00 Temperature 97.5 F 97.8 F Pulse Rate 77 72 Blood Pressure 143/77 H 134/80 Pulse Oximetry 99 Oxygen Delivery Method Room Air BMI result Body Mass Index 23.8 Labs Results: 09/22/21 13:28 09/28/21 08:00 Labs: Laboratory Results - last 48 hr 09/28/21 09/28/21 08:00 08:00 BUN 13 D Creatinine 0.82 Estim Creat Clear Calc 72.1 Estimated GFR > 60 TSH 0.60 [place] 0.58 L Medications Medications Current Medications Acetaminophen (Acetaminophen 325 Mg Tablet) 650 mg PO Q6H PRN PRN Reason: Headache/Pain Mild Scale (1-3) Al Hydroxide/Mg Hydroxide (Magnesium Hydrox/Alum Hydrox 30 Ml Oral.Susp) 30 ml PO Q6H PRN PRN Reason: Heartburn/Nausea Clonidine HCl (Clonidine Hcl 0.1 Mg Tablet) 0.1 mg PO Q4H PRN; Protocol PRN Reason: anxiety/insomnia Last Admin: 09/28/21 20:59 Dose: 0.1 mg Lamotrigine (Lamotrigine 100 Mg Tablet) 200 mg PO BEDTIME CHRISTIANO Last Admin: 09/28/21 20:56 Dose: 200 mg [place] Carbonate ([place] Carbonate Er 300 Mg Tablet.Er) 600 mg PO BEDTIME CHRISTIANO Last Admin: 09/28/21 20:56 Dose: 600 mg Loperamide HCl (Loperamide Hcl 2 Mg Capsule) 2 mg PO Q6H PRN PRN Reason: Loose Stool Last Admin: 09/25/21 12:47 Dose: 2 mg Magnesium Hydroxide (Milk Of Magnesia 30 Ml Oral.Susp) 30 ml PO DAILY PRN PRN Reason: Constipation Ondansetron HCl (Ondansetron Odt 4 Mg Tab.Rapdis) 4 mg TRANSLINGU Q6H PRN PRN Reason: Nausea Last Admin: 09/28/21 12:58 Dose: 4 mg Quetiapine Fumarate (Quetiapine Fumarate 25 Mg Tablet) 25 mg PO BID PRN PRN Reason: anxiety Sertraline HCl (Sertraline Hcl 50 Mg Tablet) 150 mg PO DAILY [facility] Last Admin: 09/29/21 09:18 Dose: 150 mg Trazodone HCl (Trazodone Hcl 50 Mg Tablet) 50 mg PO BEDTIME PRN PRN Reason: Insomnia Allergies Allergies Allergy/AdvReac Type Severity Reaction Status Date / Time hydroxyzine [From Atarax] AdvReac Unknown Insomnia Verified 09/22/21 19:14 Assessment & Plan Assessment & Plan (1) Bipolar disorder current episode depressed: Status: Acute Code(s): F31.30 - Bipolar disorder, current episode depressed, mild or moderate severity, unspecified Plan Patient is a 41-year-old female with history of bipolar disorder who presents for depression and overall only panic. Patient reports that on Lamictal and Zoloft she had been mostly stable for several years. -patient has been partially treated on Lamictal and Zoloft and though stable has remained depressed -currently getting over severe depression and now having panic attacks in the face of psychosocial stressors and possibly under dosed -currently no SI however genuine suicide attempt a few months ago with patient failing to reach out for help prior to or after were -patient open to medication management and considering lithium 3/18 Little better; agrees to lithium trial; engaging in CBT therapy while on the unit 04/25 will leave lithium at current dose. Patient has been mild to moderately stable on Lamictal; perhaps she will be able to tolerate a lower dose of lithium which can help mitigate risk of side effects 04/26 Patient reports good mood, anxiety much better and patient remains eager and invested in treatment. No SI; agrees to increased lithium 04/27 Good mood, using coping skills, no SI/HI/AVH; increased self-confidence. Patient is wanted to discuss discharge soon. She agrees to get follow-up labs as an outpatient 04/28 doing well; labs within normal limits; good mood no SI tolerating medications. 04/29 continue current treatment plan, patient doing well. Patient plans to discharge tomorrow. Patient is future oriented and optimistic about continuing treatment as an outpatient. She is not in imminent risk of harm to self or others and request for discharge honored. Plan: CV Q 15 minute checks Continue [place] ER 600mg qhs Continue Lamictal 200 mg q.h.s. Continue Zoloft 150 mg daily Will consider lithium or other mood stabilizer as patient's depression is poorly controlled and she recently had a manic episode I spent minutes with the patient and/or on the patient floor today, greater than?50% of which was spent counseling/coordinating care. Patient educated on: diagnosis and therapeutic strategies Informed Consent: understands Reason for contiued inpatient stay Substantial Risk for: stable for discharge
--- NOTE | 2021-09-29 17:05 | P.DS_ITS ---
DS: Providers Provider Date of Service: 09/30/21 Date of admission: 09/22/21 15:50 Date of discharge: 09/30/21 Primary care physician: Unknown Physician Attending physician on admission: David Britton Attending physician on discharge: David Britton DS: Diagnosis Discharge Diagnosis (1) Bipolar disorder current episode depressed: Status: Acute DS: Medications Discharge Medications Home Medications: Home Medications Medication Instructions Recorded Confirmed clonazepam 0.5 mg tablet 1 tab PO BID 09/22/21 09/22/21 levonorgestrel-ethinyl estradiol 1 tab PO DAILY 09/22/21 09/22/21 0.1 mg-20 mcg tablet (Vienva) Previous Rx's Medication Instructions Recorded clonidine HCl 0.1 mg tablet 0.1 mg PO Q4H PRN anxiety/insomnia 09/29/21 30 days #30 tabs lamotrigine 100 mg tablet 200 mg PO BEDTIME 30 days #60 tabs 09/29/21 lithium carbonate 600 mg capsule 600 mg PO BEDTIME 30 days #30 caps 09/29/21 ondansetron 4 mg disintegrating 4 mg translingual Q6H PRN Nausea 09/29/21 tablet #0 tabs sertraline 50 mg tablet 150 mg PO DAILY 30 days #90 tabs 09/29/21 Mental Status Exam Mental Status Exam Patient Appearance: Appropriate Patient Orientation: Person, Place, Time and Situation Level of Consciousness: Awake and Alert Patient Behavior: Appropriate, Talkative, Cooperative and Good Eye Contact Mood Description: Calm and Appropriate Affect Description: Calm and Appropriate Patient Cognition Impaired: No Ability to Follow Directions: Good Speech Pattern: Spontaneous Speech Memory Description: Intact Hallucinations: None Delusions: Not Present Thought Process: Intact and Goal Oriented Thought Content: positive for Intact and positive for Goal Oriented Judgement: Good Data Data Completed and Pending Completed studies during hospitalization [Text1]: 09/23/21 09/23/21 09/23/21 08:12 08:12 08:12 BUN Creatinine Estim Creat Clear Calc Estimated GFR Estimat Average Glucose 91 Hemoglobin A1c % 4.8 Magnesium 2.0 Triglycerides 100 Cholesterol 230 LDL Cholesterol, Calc 160 HDL Cholesterol 50 Vitamin B12 363 Folate 15.3 TSH 0.98 Free T4 0.99 [place] 09/28/21 09/28/21 08:00 08:00 BUN 13 D Creatinine 0.82 Estim Creat Clear Calc 72.1 Estimated GFR > 60 Estimat Average Glucose Hemoglobin A1c % Magnesium Triglycerides Cholesterol LDL Cholesterol, Calc HDL Cholesterol Vitamin B12 Folate TSH 0.60 Free T4 [place] 0.58 L DS: Summary Hospital Course Hospital Course: Patient is a 41-year-old female with history of bipolar disorder, complex PTSD who presents for depression and panic episodes. Patient reports that on Lamictal and Zoloft she had been mostly stable for several years. On admission, patient reported depression and anxiety, partly treated with Lamictal and Zoloft. She denied any SI/HI or AVH at all but was intermittently tearful. Patient was thoroughly engaged in treatment, attending groups, forthcoming in 1 on 1 sessions and eager to work on her issues. Review of history revealed history of manic episodes and behaviors; after thorough discussion of medications, patient agreed to a trial of lithium, understanding and accepting the risks/side effect profile. This medication was well tolerated and through milieu therapy, 1:1 CBT therapy sessions and medication management, patient's mood significantly improved and her depression resolved. Patient felt much more able to have perspective on her history and life and her PTSD symptoms also diminished. Patient felt ready for discharge. She remained in a good mood, future oriented, with noticeably brighter affect, and feeling optimistic about her continued treatment. Patient currently lives with her mother (actually her aunt, who has functioned as her mother for most of patient's life) who is very supportive. Truck Driver Salesperson and team agreed that patient is appropriate for continued treatment in the outpatient community. She was not in imminent risk of harm to self or others and her request for discharge honored. pt agreed to get lab work for [place] post discharge. Time spent discussing smoking cessation with patient: 3 to 10 minutes Status at Discharge Functional status at discharge: independent ambulation Overall status at discharge: patient is back to baseline Time Spent with Patient Time attestation: Total time spent providing and/or coordinating discharge services: Time spent: Less than 30 minutes Discharge Plan Discharge Patient Disposition: Home, Self-Care Discharge Diagnosis: Bipolar disorder type I, recurrent, moderate most recent ep isode depressed, in full remission Referrals: [facility] Hospital[facility] Program ([facility]) [Other] - 10/06/21 11:00 am (The initial intake assessment is in-person. [facility] will contact you later this week if there is a cancellation and they can get you into the program sooner) Joaquina Paige NP [Nurse Practitioner] - 10/14/21 11:15 am (IN OFFICE) Discharge Medications: New clonidine HCl 0.1 mg Tablet 0.1 mg PO Q4H PRN (Reason: anxiety/insomnia) 30 Days Qty: 30 0RF Protocol: Hold for SBP< HOLD for SBP < : 90 Rx Instructions: May also take only 1/2 tablet sertraline 50 mg Tablet 150 mg PO DAILY 30 Days Qty: 90 0RF lamotrigine 100 mg Tablet 200 mg PO BEDTIME 30 Days Qty: 60 0RF ondansetron 4 mg Tablet,Disintegrating 4 mg translingual Q6H PRN (Reason: Nausea) Qty: 0 0RF lithium carbonate 600 mg capsule 600 mg PO BEDTIME 30 Days Qty: 30 0RF Continued levonorgestrel-ethinyl estrad [Vienva] 0.1-20 mg-mcg tablet 1 tab PO DAILY clonazepam 0.5 mg tablet 1 tab PO BID Discontinued sertraline 50 mg tablet 1 tab PO DAILY Discharge Orders: Discharge Order (Routine); Ordered 09/30/21 Ordered By: David Britton Diet: Regular diet Activity on Discharge: As tolerated Stand Alone Forms: Patient Portal Discharge page, Community Support Care Plan Goals: Maintain mood and safe behaviors Take medications as prescribed Practice coping skills Continue with outpatient providers and reach out to them as needed Health Concerns: Mood stability and behaviors Plan of Treatment: Follow up with your psychiatric provider and other outpatient providers regarding above concerns Take medications as prescribed Assessment: Risk assessment at time of discharge:? Patient was interviewed prior to discharge and found to be fully oriented and without any SI or HI. Patient has insight and demonstrates good judgment in terms of wanting to pursue treatment. Patient is not in imminent risk of harm to self or others and has a safety plan that includes presenting to the closest ER or calling 911 if feeling unsafe.? Patient has been observed closely by nursing and unit staff throughout admission; patient has not engaged in any behaviors that suggest dangerousness to self or others and has demonstrated appropriate behaviors and impulse control Discharge Date/Time: 09/30/21 15:10
[2021-09-29 21:35] VITALS: BP 122/76; PULSE 74; TEMP 36.3; O2SAT 100
[2021-09-29] MEDS: Lithium Carbonate ER 300 MG TABLET.ER 600 MG PO (21:38)
[2021-09-29] MEDS: cloNIDine HCL 0.1 MG TABLET PO (21:38)
[2021-09-29] MEDS: lamoTRIgine 100 MG TABLET 200 MG PO (21:47)
[2021-09-30] MEDS: Sertraline HCL 50 MG TABLET 150 MG PO (08:42)
[2021-09-30] MEDS: Ondansetron ODT 4 MG TAB.RAPDIS TRANSLINGU (09:15)
--- NOTE | 2021-09-30 16:25 | HO.PSYCHPN ---
Subjective Subjective Date of Service: 09/30/21 Reason For Visit: SI Interim History: Adelina will discharge today. She reports I have really loved it here. I have received so much help and caring. She is a bit anxious to return to her children-they will be beginning their school year soon, however, states she will be suprising them today with her return which is exciting for her. She has no questions on medication regime or out pt plan of care and is thankful to her team for their assistance. Medication Compliance: Yes Side effects from medications: No Attending Groups: Yes Review of Systems Acute medical concerns: No Medical Review of Systems: unchanged Review of Systems Psychiatric: Reports no additional psychiatric complaints Mental Status Exam Mental Status Exam Patient Appearance: Appropriate Patient Orientation: Person, Place, Time and Situation Level of Consciousness: Awake and Alert Patient Behavior: Appropriate, Talkative, Cooperative and Good Eye Contact Mood Description: Calm and Appropriate Affect Description: Calm and Appropriate Patient Cognition Impaired: No Ability to Follow Directions: Good Speech Pattern: Spontaneous Speech Memory Description: Intact Hallucinations: None Delusions: Not Present Thought Process: Intact and Goal Oriented Thought Content: positive for Intact and positive for Goal Oriented Judgement: Good Diagnostics Vital Signs (24Hr): Vital Signs - 24 hr 09/29/21 21:35 Temperature 97.3 F Pulse Rate 74 Blood Pressure 122/76 Pulse Oximetry 100 Oxygen Delivery Method Room Air BMI result Body Mass Index 23.8 Labs Results: 09/22/21 13:28 09/28/21 08:00 Medications Allergies Allergies Allergy/AdvReac Type Severity Reaction Status Date / Time hydroxyzine [From Atarax] AdvReac Unknown Insomnia Verified 09/22/21 19:14 Assessment & Plan Assessment & Plan (1) Bipolar disorder current episode depressed: Status: Acute Code(s): F31.30 - Bipolar disorder, current episode depressed, mild or moderate severity, unspecified Plan Patient is a 41-year-old female with history of bipolar disorder who presents for depression and overall only panic. Patient reports that on Lamictal and Zoloft she had been mostly stable for several years. -patient has been partially treated on Lamictal and Zoloft and though stable has remained depressed -currently getting over severe depression and now having panic attacks in the face of psychosocial stressors and possibly under dosed -currently no SI however genuine suicide attempt a few months ago with patient failing to reach out for help prior to or after were -patient open to medication management and considering lithium 04/24 Little better; agrees to lithium trial; engaging in CBT therapy while on the unit 04/25 will leave lithium at current dose. Patient has been mild to moderately stable on Lamictal; perhaps she will be able to tolerate a lower dose of lithium which can help mitigate risk of side effects 04/26 Patient reports good mood, anxiety much better and patient remains eager and invested in treatment. No SI; agrees to increased lithium 04/27 Good mood, using coping skills, no SI/HI/AVH; increased self-confidence. Patient is wanted to discuss discharge soon. She agrees to get follow-up labs as an outpatient 04/28 doing well; labs within normal limits; good mood no SI tolerating medications. 04/29 continue current treatment plan, patient doing well. Patient plans to discharge tomorrow. Patient is future oriented and optimistic about continuing treatment as an outpatient. She is not in imminent risk of harm to self or others and request for discharge honored. 04/30/21- Discharge today. Plan: CV Q 15 minute checks Continue [place] ER 600mg qhs Continue Lamictal 200 mg q.h.s. Continue Zoloft 150 mg daily Will consider lithium or other mood stabilizer as patient's depression is poorly controlled and she recently had a manic episode I spent minutes with the patient and/or on the patient floor today, greater than?50% of which was spent counseling/coordinating care. Patient educated on: therapeutic strategies Informed Consent: understands Reason for contiued inpatient stay Substantial Risk for: stable for discharge
== END 2021-09-30 15:10 | disposition home or self-care (01) | DRG 885 ==
LOC: HO.ED 14:39 → HO.PM5 15:55
PROVIDERS: Admitting Provider Clinical Nurse Specialist Psychiatric/Mental Health, Adult; Emergency Provider Emergency Medicine; Visit Provider Psychiatry & Neurology Psychiatry
DX: F31.30 Bipolar disorder, current episode depressed, mild or moderate severity, unspecified (principal); R45.851 Suicidal ideations; Z20.822 Contact with and (suspected) exposure to COVID-19; Z62.812 Personal history of neglect in childhood; Z88.8 Allergy status to other drugs, medicaments and biological substances; Z79.3 Long term (current) use of hormonal contraceptives; Z79.899 Other long term (current) drug therapy
CPT/HCPCS: 36415; 80048; 80061; 80076; 80178; 80307; 82077; 82565; 82607; 82746; 83036; 83735; 84439; 84443; 84520; 84702; 85025; 87635; 93005; 99285

== ENCOUNTER 2021-10-01 13:42 | Outpatient (REF) | payer OTHER, SELFPAY ==
[2021-10-01 15:40] LABS: Lithium 0.41 mmol/L (0.60-1.20)
[2021-10-01 15:43] LABS: Blood Urea Nitrogen 10 mg/dL (9-16); Estimated Glomerular Filt Rate > 60
== END 2021-10-01 13:43 | disposition home or self-care (01) ==
LOC: HO.LAB 13:42
PROVIDERS: Visit Provider Psychiatry & Neurology Psychiatry
DX: Z79.899 Other long term (current) drug therapy (principal)
CPT/HCPCS: 36415; 80178; 82565; 84520

== ENCOUNTER 2021-10-09 10:44 | Outpatient (REF) | payer OTHER, SELFPAY ==
[2021-10-09 11:26] LABS: Amphetamine Screen Urine Not Detected (Not Detect); Barbiturates, Urine Not Detected (Not Detect); Benzodiazepines Screen Urine Not Detected (Not Detect); Cannabinoid Screen Urine POSITIVE (Not Detect); Cocaine Screen Urine Not Detected (Not Detect); Fentanyl, urine Not Detected (Not Detect); Opiate Screen Urine Not Detected (Not Detect); Phencyclidine Screen Urine Not Detected (Not Detect)
== END 2021-10-09 10:45 | disposition home or self-care (01) ==
LOC: HO.PHPLNP 10:44
PROVIDERS: Visit Provider Nurse Practitioner Psychiatric/Mental Health
DX: Z13.89 Encounter for screening for other disorder (principal)
CPT/HCPCS: 80307

== ENCOUNTER 2021-10-15 08:19 | Outpatient (REF) | payer OTHER, SELFPAY ==
[2021-10-15 09:47] LABS: Lithium 0.69 mmol/L (0.60-1.20)
== END 2021-10-15 08:20 | disposition home or self-care (01) ==
LOC: HO.LAB 08:19
PROVIDERS: Visit Provider Nurse Practitioner Psychiatric/Mental Health
DX: F31.30 Bipolar disorder, current episode depressed, mild or moderate severity, unspecified (principal); Z79.899 Other long term (current) drug therapy
CPT/HCPCS: 36415; 80178

== ENCOUNTER 2021-11-10 10:39 | Outpatient (REF) | payer OTHER, SELFPAY ==
[2021-11-10 11:44] LABS: Lithium 0.59 mmol/L (0.60-1.20)
[2021-11-10 12:06] LABS: Alanine Aminotransferase 13 U/L (0-31); Albumin Level 4.8 g/dL (3.5-5.0); Alkaline Phosphatase 82 U/L (39-117); Anion Gap 14 (12-20); Aspartate Amino Transferase 15 U/L (5-31); Bilirubin Total 0.5 mg/dL (0.0-1.0); Blood Urea Nitrogen 9 mg/dL (9-16); Calcium 9.8 mg/dL (8.4-10.2); Carbon Dioxide 26 mmol/L (22-29); Chloride 105 mmol/L (96-108); Estimated Glomerular Filt Rate > 60; Glucose Random 93 mg/dL (60-115); Potassium 4.3 mmol/L (3.3-5.1); Sodium 141 mmol/L (135-145); Total Protein 7.6 g/dL (6.5-8.0)
[2021-11-10 12:14] LABS: Thyroid Stimulating Hormone 1.75 uIU/mL (0.32-4.0)
--- NOTE | 2021-11-10 13:06 | P.PNPSP_ITS ---
Subjective Subjective Date of Service: 11/10/21 Reason For Visit: f31.30 Medical Problems Affecting Mental Status: No Interim History: Describes mood as 'still up and down, but a lot more stable . States increased lithium dose has been helpful. Start taking clonidine, states it was making her ?feel like a zombie ?. Expresses some anxiety about leaving program, keeping structure in her day. No SI, no safety concerns. Medication Compliance: Yes Side effects from medications: No Attending Groups: Yes Review of Systems Acute medical concerns: No Medical Review of Systems: unchanged Review of Systems Review of Systems Yes all other systems are reviewed and are negative Constitutional: Reports no additional constitutional complaints Mental Status Exam Mental Status Exam Narrative: NAD. Patient Appearance: Well Grooomed and Appropriate Patient Orientation: Person, Place, Time and Situation Level of Consciousness: Awake and Appropriate Patient Behavior: Appropriate, Cooperative and Good Eye Contact Mood Description: Anxious (states related to leaving program) Affect Description: Appropriate Patient Cognition Impaired: No Ability to Follow Directions: Excellent Speech Pattern: Clear and Appropriate Memory Description: Intact Hallucinations: None Delusions: Not Present Thought Process: Intact, Goal Oriented and Linear Thought Content: positive for Intact, positive for Goal Oriented and positive for Linear Judgement: Good Diagnostics Labs Results: 11/10/21 10:47 Labs: Laboratory Results - last 48 hr 11/10/21 11/10/21 10:47 10:47 Sodium 141 Potassium 4.3 Chloride 105 Carbon Dioxide 26 Anion Gap 14 BUN 9 Creatinine 0.80 Estim Creat Clear Calc Not Reportable Estimated GFR > 60 Random Glucose 93 Calcium 9.8 D Total Bilirubin 0.5 AST 15 ALT 13 Alkaline Phosphatase 82 Total Protein 7.6 Albumin 4.8 TSH 1.75 [place] 0.59 L Assessment & Plan Assessment & Plan (1) Bipolar disorder current episode depressed: Status: Acute Code(s): F31.30 - Bipolar disorder, current episode depressed, mild or moderate severity, unspecified Assessment and Plan: Describes mood as 'still up and down, but a lot more stable . Feels ready for discharge from [facility] today. States increased lithium dose has been helpful, satisfied with current dose. Labs ordered, including chem profile, TSH, lithium level. Patient will print out results to take with her to upcoming appointment with her outpatient psych provider. Start taking clonidine, states it was making her ?feel like a zombie ?. States she was utilizing it for sleep, but sleep has improved without needing the medication. Expresses some anxiety about leaving program, keeping structure in her day. Has had a job inter, is hopeful that she will get offered a position. She states this will offer structure during her day while her children are in school. No SI, no safety concerns. Plan 1. Patient appears stable for discharge from [facility] at this time. 2. Labs to be completed today. Patient plans to look up resultant patient po rtal. She was informed this office would call if any concerning results. 3. Patient to follow-up with outpatient providers going forward. Patient educated on: diagnosis, medication risk/benefits and therapeutic strategies Informed Consent: understands Reason for contiued partial hosp. stay Substantial Risk for: stable for discharge Certification I certify that partial hospital treatment is medically necessary due to the symptoms and problems resulting from the patient's mental illness and the failure to treat the patient at the partial hospital level of care would likely result in the patient requiring inpatient psychiatric care which could not be prevented at a less intensive level of care. I spent minutes with the patient and/or on the patient floor today, greater than?50% of which was spent counseling/coordinating care. Discharge Plan Discharge Patient Disposition: Home, Self-Care Discharge Medications: No Action levonorgestrel-ethinyl estrad [Vienva] 0.1-20 mg-mcg tablet 1 tab PO DAILY clonazepam 0.5 mg tablet 1 tab PO BID clonidine HCl 0.1 mg Tablet 0.1 mg PO Q4H PRN (Reason: anxiety/insomnia) 30 Days Qty: 30 0RF Protocol: Hold for SBP< HOLD for SBP < : 90 Rx Instructions: May also take only 1/2 tablet sertraline 50 mg Tablet 150 mg PO DAILY 30 Days Qty: 90 0RF lamotrigine 100 mg Tablet 200 mg PO BEDTIME 30 Days Qty: 60 0RF ondansetron 4 mg Tablet,Disintegrating 4 mg translingual Q6H PRN (Reason: Nausea) Qty: 0 0RF lithium carbonate 600 mg capsule 600 mg PO BEDTIME Qty: 30 0RF Rx Instructions: Take with lithium 300mg, for total daily dose of 900mg lithium carbonate 300 mg capsule 300 mg PO BEDTIME Qty: 30 0RF Rx Instructions: take with lithium 600mg, for total daily dose of 900mg.
== END 2021-11-10 10:40 | disposition home or self-care (01) ==
LOC: HO.LAB 10:39
PROVIDERS: Visit Provider Nurse Practitioner Psychiatric/Mental Health
DX: F31.30 Bipolar disorder, current episode depressed, mild or moderate severity, unspecified (principal); Z79.899 Other long term (current) drug therapy
CPT/HCPCS: 36415; 80053; 80178; 84443

== ENCOUNTER 2021-11-10 11:45 | Outpatient (RCR) | payer OTHER, SELFPAY ==
[2021-10-07 10:59] VITALS: BMI 24.7
[2021-10-07 11:21] VITALS: BP 100/70; PULSE 60; TEMP 36.6
--- NOTE | 2021-10-07 12:12 | PC.NURSE ---
Patient is a single mother of 4 children who was referred by [facility] inpatient behavioral health unit where she was admitted from 09/22-10/01 d/t increased depression with passive SI with anxiety and panic. Patient reported multiple stresses including losing her job, breakup with significant other, and of her biological mother. Patient holds a dx of Bipolar I d/o most recent episode depressed. Patient lives with her adopted mother who is patient's aunt whom she describes as supportive. Patient reports a history of suicide attempts most recent in June 2021 where patient reportedly went to a hotel room and overdosed on her medications. Patient reportedly woke up but unable to remember anything for a few days and went home afterwards. Patient reports she is glad she did not and does not want to do that to her children. Patient reports feeling better since hospitalization. Denied current SI or thoughts to harm herself. Wants to continue to work on depression and anxiety symptoms. Reports improvement with appetite. Patient reports she slept last night for 7 hours with using Clonidine. Patient also reports using Cannabis edibles and Vaping and uses 1/2 a gram daily. Patient reports she is using too much Cannabis and finds she isolates in her room as a result. Patient also reports issues with vomiting and nausea and is using Ondansertron. Patient given written and verbal education on Cannabis Hyperemesis Syndrome in addition to Marijuana use and addiction. Patient is interested in stopping use. Patient appears motivated for treatment. Medications reconciled with patient and discharge paperwork for inpatient unit. Patient reports taking her medications as prescribed and appears to know when to take the medications and what they are for.
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
--- NOTE | 2021-10-08 15:53 | PC.NURSE ---
Case opened in Treatment Team.
--- NOTE | 2021-10-09 14:03 | PC.NURSE ---
I met with pt to review treatment plan, schedule, and aftercare. Pt reports a positive experience in PHP overall, and was able to identify goals on treatment plan. She has aftercare providers and we discussed options for additional support including support groups at [facility].
--- NOTE | 2021-10-13 12:16 | HO.PHPPROGNO ---
Subjective Subjective Date of Service: 10/13/21 Reason For Visit: bipolar Medical Problems Affecting Mental Status: No Interim History: Patient reports she has been taking increased dose of lithium 900 mg this past week with positive affect, Feels less depressed, feels mood is more stabilized. Wishes to remain at 900 mg daily. No SI, no safety concerns. Finding groups helpful. Medication Compliance: Yes Side effects from medications: No Attending Groups: Yes Review of Systems Acute medical concerns: No Medical Review of Systems: unchanged Review of Systems Review of Systems Yes all other systems are reviewed and are negative Constitutional: Reports no additional constitutional complaints Mental Status Exam Mental Status Exam Narrative: Gait/ambulation normal, no tics or tremors, no abnormal movements noted. NAD. Patient Appearance: Well Grooomed and Appropriate Patient Orientation: Person, Place, Time and Situation Level of Consciousness: Awake and Appropriate Patient Behavior: Appropriate, Cooperative and Good Eye Contact Mood Description: Calm and Appropriate Affect Description: Calm and Appropriate Patient Cognition Impaired: No Ability to Follow Directions: Excellent Speech Pattern: Clear, Appropriate and Coherent Memory Description: Intact Hallucinations: None Delusions: Not Present Thought Process: Intact and Goal Oriented Thought Content: positive for Intact Depressive Symptoms: Increased Anxiety (Relates this to not using cannabis.) Judgement: Fair Diagnostics Vital Signs (24Hr): BMI result Body Mass Index 24.7 Assessment & Plan Assessment & Plan (1) Bipolar disorder current episode depressed: Status: Acute Code(s): F31.30 - Bipolar disorder, current episode depressed, mild or moderate severity, unspecified Assessment and Plan: Patient reports increased dose of lithium last week to 900 mg has been helpful. Reports feeling less depressed, mood more stabilized. Finding groups to be helpful. No SI, no safety concerns. Labs reviewed with patient, including recent TSH, kidney function, Inpatient lithium level. Trying To abstain from cannabis use. Plan 1. Continue with current [facility] plan of care. 2. [place] level to be obtained, Lab slip sent. 3. Refill lithium 300 mg, to be taken was 600 mg capsule at night. 4. Follow-up as per protocol. Patient educated on: diagnosis, medication risk/benefits, substance abuse and therapeutic strategies Informed Consent: understands Reason for contiued partial hosp. stay Substantial Risk for: inability to function, rapid decompensation and med/psych decompensation Certification I certify that partial hospital treatment is medically necessary due to the symptoms and problems resulting from the patient's mental illness and the failure to treat the patient at the partial hospital level of care would likely result in the patient requiring inpatient psychiatric care which could not be prevented at a less intensive level of care. I spent minutes with the patient and/or on the patient floor today, greater than?50% of which was spent counseling/coordinating care. Discharge Plan Discharge Attending provider: Patrick Rivas Medications: New lithium carbonate 300 mg capsule 300 mg PO BEDTIME Qty: 14 0RF Rx Instructions: take with lithium 600mg for total daily dose 900mg at bedtime. No Action levonorgestrel-ethinyl estrad [Vienva] 0.1-20 mg-mcg tablet 1 tab PO DAILY clonazepam 0.5 mg tablet 1 tab PO BID clonidine HCl 0.1 mg Tablet 0.1 mg PO Q4H PRN (Reason: anxiety/insomnia) 30 Days Qty: 30 0RF Protocol: Hold for SBP< HOLD for SBP < : 90 Rx Instructions: May also take only 1/2 tablet sertraline 50 mg Tablet 150 mg PO DAILY 30 Days Qty: 90 0RF lamotrigine 100 mg Tablet 200 mg PO BEDTIME 30 Days Qty: 60 0RF ondansetron 4 mg Tablet,Disintegrating 4 mg translingual Q6H PRN (Reason: Nausea) Qty: 0 0RF lithium carbonate 600 mg capsule 600 mg PO BEDTIME 30 Days Qty: 30 0RF
--- NOTE | 2021-10-22 13:17 | P.PNPSP_ITS ---
Subjective Subjective Date of Service: 10/22/21 Reason For Visit: bipolar Medical Problems Affecting Mental Status: No Interim History: Reports feeling well , states current lithium does working well to stabilize mood. Stop taking clonidine, her blood pressure was going too low when she took it. Working on improving sleep hygiene. Denies SI, no safety concerns. Medication Compliance: Yes Side effects from medications: No Attending Groups: Yes Review of Systems Medical Review of Systems: unchanged Review of Systems Review of Systems Yes all other systems are reviewed and are negative Constitutional: Reports no additional constitutional complaints Mental Status Exam Mental Status Exam Narrative: NAD. Patient Appearance: Well Grooomed and Appropriate Patient Orientation: Person, Place, Time and Situation Level of Consciousness: Awake and Appropriate Patient Behavior: Appropriate, Cooperative and Good Eye Contact Mood Description: Calm and Appropriate Affect Description: Calm and Appropriate Patient Cognition Impaired: No Ability to Follow Directions: Excellent Speech Pattern: Clear, Appropriate and Coherent Memory Description: Intact Hallucinations: None Delusions: Not Present Thought Process: Intact and Goal Oriented Thought Content: positive for Intact Judgement: Good Diagnostics Vital Signs (24Hr): BMI result Body Mass Index 24.7 Assessment & Plan Assessment & Plan (1) Bipolar disorder current episode depressed: Status: Acute Code(s): F31.30 - Bipolar disorder, current episode depressed, mild or moderate severity, unspecified Assessment and Plan: Reports feeling well , states current lithium does working well to stabilize mood. Reviewed recent lab work with patient, lithium level 0.69 on 10/15/2021. Education provided regarding lithium therapeutic level range. Stop taking clonidine, her blood pressure was going too low when she took it. Reports also that since lithium has been increased she no longer feels the need for the clonidine at this time. Working on improving sleep hygiene. Discussed routines, ways to improve sleep. Denies SI, no safety concerns. Plan 1. Continue with current [facility] plan of care. 2. Discontinue clonidine. 3. Continue with lithium 900 mg daily at bedtime. Thirty day script sent to pharmacy. 4. Follow-up as per protocol. Patient educated on: diagnosis, medication risk/benefits and therapeutic strategies Informed Consent: understands Reason for contiued partial hosp. stay Substantial Risk for: inability to function Certification I certify that partial hospital treatment is medically necessary due to the symptoms and problems resulting from the patient's mental illness and the failure to treat the patient at the partial hospital level of care would likely result in the patient requiring inpatient psychiatric care which could not be prevented at a less intensive level of care. I spent minutes with the patient and/or on the patient floor today, greater than?50% of which was spent counseling/coordinating care. Discharge Plan Discharge Attending provider: Patrick Rivas Medications: New lithium carbonate 600 mg capsule 600 mg PO BEDTIME Qty: 30 0RF Rx Instructions: Take with lithium 300mg, for total daily dose of 900mg lithium carbonate 300 mg capsule 300 mg PO BEDTIME Qty: 30 0RF Rx Instructions: take with lithium 600mg, for total daily dose of 900mg. Discontinued lithium carbonate 600 mg capsule 600 mg PO BEDTIME 30 Days Qty: 30 0RF No Action levonorgestrel-ethinyl estrad [Vienva] 0.1-20 mg-mcg tablet 1 tab PO DAILY clonazepam 0.5 mg tablet 1 tab PO BID clonidine HCl 0.1 mg Tablet 0.1 mg PO Q4H PRN (Reason: anxiety/insomnia) 30 Days Qty: 30 0RF Protocol: Hold for SBP< HOLD for SBP < : 90 Rx Instructions: May also take only 1/2 tablet sertraline 50 mg Tablet 150 mg PO DAILY 30 Days Qty: 90 0RF lamotrigine 100 mg Tablet 200 mg PO BEDTIME 30 Days Qty: 60 0RF ondansetron 4 mg Tablet,Disintegrating 4 mg translingual Q6H PRN (Reason: Nausea) Qty: 0 0RF
--- NOTE | 2021-10-23 14:06 | PC.NURSE ---
I met with pt at her request. Asked if she might extend her treatment after her planned discharge, as she is feeling somewhat better and fears discharge with limited structure. We discussed potential for IOP LOC after PHP.
--- NOTE | 2021-10-27 14:46 | PC.NURSE ---
I met with Adelina after the 1st group, as she expressed SI in the group. She reported increased depressed mood and SI for the past 3 days. She was out yesterday because her daughter was sick. She was tearful at first, and spoke about frustration with her kids and reported struggling with finding purpose in her life. She reported no intent to act on her SI, and said she does not have a plan. I asked her if she feels she might need a respite stay or an assessment for hospitalization, and she declined. I educated her about respite. She was calmer after talking, and able to talk about how much better she felt just days ago. She was able to express some hope around feeling better soon with use of coping. Pt has the number for crisis hotline ([facility]) and said she will use it if she feels unsafe. She also said she would let me know if she changes her mind about respite. She was able to use some humor as our meeting closed, and she returned to group.
--- NOTE | 2021-10-28 16:32 | P.PNPSP_ITS ---
Subjective Subjective Date of Service: 10/28/21 Reason For Visit: bipolar Medical Problems Affecting Mental Status: No Interim History: Reports was feeling overwhelmed over the weekend, was depressed. States feels mood has improved this morning, feels better at this time. No SI, no safety concerns. Feels current dose of lithium is helping along with other prescribed meds. Cannabis use has decreased, using harm reduction techniques, more mindful regarding use. Medication Compliance: Yes Side effects from medications: No Attending Groups: Yes Review of Systems Acute medical concerns: No Medical Review of Systems: unchanged Review of Systems Review of Systems Yes all other systems are reviewed and are negative Constitutional: Reports no additional constitutional complaints Mental Status Exam Mental Status Exam Narrative: NAD. Patient Appearance: Well Grooomed and Appropriate Patient Orientation: Person, Place, Time and Situation Level of Consciousness: Awake and Appropriate Patient Behavior: Appropriate, Cooperative and Good Eye Contact Mood Description: Appropriate (States feeling less depressed than over weekend.) Affect Description: Appropriate Patient Cognition Impaired: No Ability to Follow Directions: Excellent Speech Pattern: Clear, Appropriate and Coherent Memory Description: Intact Hallucinations: None Delusions: Not Present Thought Process: Intact and Goal Oriented Thought Content: positive for Intact Depressive Symptoms: Increased Anxiety Judgement: Good Diagnostics Vital Signs (24Hr): BMI result Body Mass Index 24.7 Assessment & Plan Assessment & Plan (1) Bipolar disorder current episode depressed: Status: Acute Code(s): F31.30 - Bipolar disorder, current episode depressed, mild or moderate severity, unspecified Assessment and Plan: Reports was feeling overwhelmed over the weekend, was depressed. Reports that raising her children with her mother is difficult at times, was especially difficult over this past weekend. States feels mood has improved this morning, feels better at this time. No SI, no safety concerns. Feels current dose of lithium is helping along with other prescribed meds. Finding groups helpful. Cannabis use has decreased, using harm reduction techniques. Plan 1. Continue with current [facility] plan of care. 2. Continue with current medication regimen. 3. Follow-up as per protocol. Patient educated on: diagnosis, medication risk/benefits and substance abuse Informed Consent: understands Reason for contiued partial hosp. stay Substantial Risk for: inability to function and rapid decompensation Certification I certify that partial hospital treatment is medically necessary due to the symptoms and problems resulting from the patient's mental illness and the failure to treat the patient at the [facility] hospital level of care would likely result in the patient requiring inpatient psychiatric care which could not be prevented at a less intensive level of care. I spent minutes with the patient and/or on the patient floor today, greater than?50% of which was spent counseling/coordinating care. Discharge Plan Discharge Attending provider: Patrick Rivas Medications: New lithium carbonate 600 mg capsule 600 mg PO BEDTIME Qty: 30 0RF Rx Instructions: Take with lithium 300mg, for total daily dose of 900mg lithium carbonate 300 mg capsule 300 mg PO BEDTIME Qty: 30 0RF Rx Instructions: take with lithium 600mg, for total daily dose of 900mg. Discontinued lithium carbonate 600 mg capsule 600 mg PO BEDTIME 30 Days Qty: 30 0RF No Action levonorgestrel-ethinyl estrad [Vienva] 0.1-20 mg-mcg tablet 1 tab PO DAILY clonazepam 0.5 mg tablet 1 tab PO BID clonidine HCl 0.1 mg Tablet 0.1 mg PO Q4H PRN (Reason: anxiety/insomnia) 30 Days Qty: 30 0RF Protocol: Hold for SBP< HOLD for SBP < : 90 Rx Instructions: May also take only 1/2 tablet sertraline 50 mg Tablet 150 mg PO DAILY 30 Days Qty: 90 0RF lamotrigine 100 mg Tablet 200 mg PO BEDTIME 30 Days Qty: 60 0RF ondansetron 4 mg Tablet,Disintegrating 4 mg translingual Q6H PRN (Reason: Nausea) Qty: 0 0RF Stand Alone Forms: Patient Portal Discharge page
--- NOTE | 2021-10-29 09:37 | PC.NURSE ---
Patient called and spoke to staff letting staff know she was not going to be in today as she had to deal with a family emergency. Stated she is safe. She stated she is not scheduled to attend tomorrow however would be her on Tuesday.
--- NOTE | 2021-11-10 11:43 | PC.NURSE ---
Addendum entered by Alejandrina Glover 11/11/21 15:22: I wrote that I called [facility]. I meant to say I called N. Wherever it says [facility] in this note, it should say [facility]. Original Note: I called [facility] and left a message with central intake asking about referring pt for groups. With pt's permission, I then faxed over a referral form for pt to hopefully join the enhanced group program at [facility]. The program consists of daily groups (1 per day), and people can only join one group at a time, then add another if they show consistency.
--- NOTE | 2021-11-10 15:34 | PC.NURSE ---
I called and LM for pt's therapist, Judy Ewing at [facility]. I let her know of pt's successful discharge today, and her clinical presentation at discharge.
== END 2021-11-10 23:59 | disposition home or self-care (01) ==
LOC: HO.PHPA 11:45
PROVIDERS: Visit Provider Psychiatry & Neurology Psychiatry
DX: F31.30 Bipolar disorder, current episode depressed, mild or moderate severity, unspecified (principal); Z79.899 Other long term (current) drug therapy
CPT/HCPCS: 90791; 90853

== ENCOUNTER 2022-01-08 13:53 | Outpatient (REF) | payer MEDICAID, SELFPAY ==
[2022-01-08 15:16] LABS: Lithium 0.49 mmol/L (0.60-1.20)
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
[2022-01-08 15:48] LABS: Alanine Aminotransferase 7 U/L (0-31); Albumin Level 4.6 g/dL (3.5-5.0); Alkaline Phosphatase 72 U/L (39-117); Anion Gap 11 (12-20); Aspartate Amino Transferase 13 U/L (5-31); Bilirubin Total 0.7 mg/dL (0.0-1.0); Blood Urea Nitrogen 10 mg/dL (9-16); Calcium 10.1 mg/dL (8.4-10.2); Carbon Dioxide 28 mmol/L (22-29); Chloride 100 mmol/L (96-108); Estimated Glomerular Filt Rate > 60; Free T4 (Free Thyroxine) 0.89 ng/dL (0.71-1.85); Glucose Random 83 mg/dL (60-115); Sodium 135 mmol/L (135-145); Thyroid Stimulating Hormone 1.13 uIU/mL (0.32-4.0); Total Protein 7.3 g/dL (6.5-8.0)
== END 2022-01-08 13:54 | disposition home or self-care (01) ==
LOC: HO.LAB 13:53
PROVIDERS: Visit Provider Nurse Practitioner Psychiatric/Mental Health
DX: F31.32 Bipolar disorder, current episode depressed, moderate (principal); F12.20 Cannabis dependence, uncomplicated; Z79.899 Other long term (current) drug therapy
CPT/HCPCS: 36415; 80053; 80178; 84439; 84443

== ENCOUNTER 2022-01-14 13:41 | Outpatient (REF) | payer OTHER, SELFPAY ==
[2022-01-14 14:54] LABS: Lithium 0.41 mmol/L (0.60-1.20)
== END 2022-01-14 13:42 | disposition home or self-care (01) ==
LOC: HO.LAB 13:41
PROVIDERS: Visit Provider Nurse Practitioner Psychiatric/Mental Health
DX: F31.30 Bipolar disorder, current episode depressed, mild or moderate severity, unspecified (principal); Z79.899 Other long term (current) drug therapy
CPT/HCPCS: 36415; 80178

== ENCOUNTER 2022-02-05 11:30 | Outpatient (RCR) | payer OTHER, SELFPAY ==
[2022-01-08 12:42] VITALS: BP 122/68; PULSE 80; TEMP 36.9
[2022-01-08 12:47] VITALS: BMI 23.8
--- NOTE | 2022-01-08 13:40 | PC.ADMIT ---
Patient is a 41 year old female who presented to [facility] d/t increased depression with passive SI, denied plan or intent to kill herself, and increased anxiety. Patient reports poor sleep, sleeping 4-5 hours a night waking several times during the night. Patient report mood instability feeling agitated at times then depressed and anxious. Patient has been to [facility] previously and has found it helpful in stabilizing her mood. Please refer to integrative Assessment for more information. Patient is alert and oriented x4. Calm and cooperative. Presented with depressed mood and anxious affect. Patient given a copy of her safety plan if needed. Medications reconciled with patient and patient's pharmacy. Patient reports she sometimes forgets to take her Zoloft however takes it most of the time. Discussed with patient using a pill organizer and taking her morning dose with her to avoid missing any doses. Patient plans on going to the [facility] today after program. [ End ]
[2022-01-08 15:44] LABS: Amphetamine Screen Urine Not Detected (Not Detect); Barbiturates, Urine Not Detected (Not Detect); Benzodiazepines Screen Urine Not Detected (Not Detect); Cocaine Screen Urine Not Detected (Not Detect); Opiate Screen Urine Not Detected (Not Detect); Phencyclidine Screen Urine Not Detected (Not Detect)
[2022-01-08 15:45] LABS: Cannabinoid Screen Urine POSITIVE (Not Detect)
--- NOTE | 2022-01-14 13:30 | P.PNPSP_ITS ---
Subjective Subjective Date of Service: 01/14/22 Reason For Visit: bipolar Medical Problems Affecting Mental Status: No Interim History: Describes mood as ?it's still up in down, but not as intense ?. Less depressed. Denies SI, no safety concerns. Took gabapentin for 3 days, stopped because she no longer felt symptoms of cannabis withdrawals. Feels current medication regimen is working. Finding groups helpful. Medication Compliance: Yes Side effects from medications: No Attending Groups: Yes Mental Status Exam Mental Status Exam Narrative: NAD Patient Appearance: Well Grooomed and Appropriate Patient Orientation: Person, Place, Time and Situation Level of Consciousness: Appropriate and Alert Patient Behavior: Appropriate, Cooperative and Good Eye Contact Mood Description: Depressed Affect Description: Depressed Patient Cognition Impaired: No Ability to Follow Directions: Good Speech Pattern: Clear, Appropriate and Coherent Memory Description: Intact Hallucinations: None Delusions: Not Present Thought Process: Intact and Goal Oriented Thought Content: positive for Intact Depressive Symptoms: Increased Anxiety, Increased Irritability, Difficulty Sleeping, Hopelessness, Unhappiness and Difficulty Concentrating Judgement: Fair Diagnostics Vital Signs (24Hr): BMI result Body Mass Index 23.8 Assessment & Plan Assessment & Plan (1) Bipolar disorder current episode depressed: Status: Acute Code(s): F31.30 - Bipolar disorder, current episode depressed, mild or moderate severity, unspecified Assessment and Plan: Describes mood as ?it's still up in down, but not as intense ?. Depression still present but lessened. Less vegetative sx. Some anxiety, nervous about upcoming potential job. Denies SI, no safety concerns. Took gabapentin for 3 days, stopped because she no longer felt symptoms of cannabis withdrawals. Continues to remain abstinent from cannabis, for one month now. Denies any cravings. Feels current medication regimen is working. Reviewed labs. Patient reports she has missed one to two doses of lithium over past month, but otherwise has been taking it daily. Will go for repeat level today. Finding groups helpful. Plan 1. Continue with current [facility] plan of care. 2. Obtain repeat lithium level. 3. Follow-up as per protocol. Patient educated on: diagnosis, medication risk/benefits, substance abuse and therapeutic strategies Informed Consent: understands Reason for contiued partial hosp. stay Substantial Risk for: harm to self, inability to function and rapid decompensation Certification I certify that partial hospital treatment is medically necessary due to the symptoms and problems resulting from the patient's mental illness and the f ailure to treat the patient at the partial hospital level of care would likely result in the patient requiring inpatient psychiatric care which could not be prevented at a less intensive level of care. I spent minutes with the patient and/or on the patient floor today, greater than?50% of which was spent counseling/coordinating care. Discharge Plan Discharge Attending provider: Patrick Rivas Medications: New gabapentin 100 mg capsule 100 mg PO TID 7 Days Qty: 21 0RF Discontinued clonidine HCl 0.1 mg Tablet 0.1 mg PO Q4H PRN (Reason: anxiety/insomnia) 30 Days Qty: 30 0RF Protocol: Hold for SBP< HOLD for SBP < : 90 Rx Instructions: May also take only 1/2 tablet No Action lithium carbonate 300 mg capsule 900 mg PO BEDTIME zolpidem 5 mg tablet 1 tab PO BEDTIME PRN (Reason: insomnia) clonazepam 0.5 mg tablet 1 tab PO BID PRN (Reason: Anxiety) Rx Instructions: Patient stated she takes as needed for anxiety. Last took 2 weeks ago. sertraline 50 mg Tablet 150 mg PO DAILY 30 Days Qty: 90 0RF Rx Instructions: Take with 100 mg tab daily. lamotrigine 100 mg Tablet 200 mg PO BEDTIME 30 Days Qty: 60 0RF Stand Alone Forms: Patient Portal Discharge page Patient Education: Gabapentin (By mouth)
--- NOTE | 2022-01-14 16:17 | HO.PHPIOP ---
Case opened in treatment team.
--- NOTE | 2022-01-19 16:18 | HO.PHPIOP ---
Referral was placed for [facility] for aftercare at pt's request.
--- NOTE | 2022-01-20 11:51 | HO.PHPPROGNO ---
Subjective Subjective Date of Service: 01/20/22 Reason For Visit: bipolar Medical Problems Affecting Mental Status: No Interim History: Describes mood as ?improving?. Less depressed. Reports that current medication regimen is working. Reports increased nausea, states that she continues to vomit stomach acid/bile, approximately 20-45 minutes after taking meds at night. Was offered position at [employer] [facility] [employer], starts in February. No thoughts of harm to self or others, no safety concerns. Remains abstinent from marijuana, reports mood has improved since cessation of use. Medication Compliance: Yes Side effects from medications: Yes (N&V in anam, after taking meds) Attending Groups: Yes Review of Systems Acute medical concerns: No Medical Review of Systems: unchanged Review of Systems Review of Systems Continues with N/V in evening after taking meds. Yes all other systems are reviewed and are negative Constitutional: Reports no additional constitutional complaints Mental Status Exam Mental Status Exam Narrative: NAD Patient Appearance: Well Grooomed and Appropriate Patient Orientation: Person, Place, Time and Situation Level of Consciousness: Appropriate and Alert Patient Behavior: Appropriate, Cooperative and Good Eye Contact Mood Description: Depressed (Still depressed, describes mood as improving.) Affect Description: Appropriate Patient Cognition Impaired: No Ability to Follow Directions: Excellent Speech Pattern: Clear, Appropriate and Coherent Memory Description: Intact Hallucinations: None Delusions: Not Present Thought Process: Intact, Goal Oriented and Linear Thought Content: positive for Intact Depressive Symptoms: Increased Anxiety and Difficulty Sleeping Judgement: Fair Diagnostics Vital Signs (24Hr): BMI result Body Mass Index 23.8 Assessment & Plan Assessment & Plan (1) Bipolar disorder current episode depressed: Status: Acute Code(s): F31.30 - Bipolar disorder, current episode depressed, mild or moderate severity, unspecified Assessment and Plan: Describes mood as ?improving?. Less depressed. Reports that current medication regimen is working. Reports increased nausea, states that she continues to vomit stomach acid/bile, approximately 20-45 minutes after taking meds at night. We discussed current medication regimen. Also discussed adding Zofran, as she had taken in the past in early 2021, with positive effect. Was offered position at [employer], starts in February. Looking forward to this. No SI/HI, no safety concerns. Remains abstinent from marijuana, reports mood has improved since cessation of use. Reports that she misses it sometimes at night before bed, but overall is feeling much better since she stopped using. (2) Cannabis dependence: Status: Acute Code(s): F12.20 - Cannabis dependence, uncomplicated Plan 1. Continue with current [facility] plan of care. 2. P.r.n. zofran ordered, 8mg tid, for nausea/vomiting. 3. Follow-up as per protocol. Patient educated on: diagnosis, medication risk/benefits, substance abuse and therapeutic strategies Reason for contiued partial hosp. stay Substantial Risk for: inability to function, rapid decompensation and med/psych decompensation Certification I certify that partial hospital treatment is medically necessary due to the symptoms and problems resulting from the patient's mental illness and the failure to treat the patient at the partial hospital level of care would likely result in the patient requiring inpatient psychiatric care which could not be prevented at a less intensive level of care. Total time managing care of this patient today __20__ minutes. Discharge Plan Discharge Attending provider: Patrick Rivas Medications: New gabapentin 100 mg capsule 100 mg PO TID 7 Days Qty: 21 0RF lithium carbonate 150 mg capsule 150 mg PO BEDTIME Qty: 7 0RF Rx Instructions: Take in addition to lithium carb 900mg at bedtime ondansetron HCl 4 mg tablet 4 mg PO Q8H PRN (Reason: nausea and vomiting) Qty: 30 0RF Discontinued clonidine HCl 0.1 mg Tablet 0.1 mg PO Q4H PRN (Reason: anxiety/insomnia) 30 Days Qty: 30 0RF Protocol: Hold for SBP< HOLD for SBP < : 90 Rx Instructions: May also take only 1/2 tablet No Action lithium carbonate 300 mg capsule 900 mg PO BEDTIME zolpidem 5 mg tablet 1 tab PO BEDTIME PRN (Reason: insomnia) clonazepam 0.5 mg tablet 1 tab PO BID PRN (Reason: Anxiety) Rx Instructions: Patient stated she takes as needed for anxiety. Last took 2 weeks ago. sertraline 50 mg Tablet 150 mg PO DAILY 30 Days Qty: 90 0RF Rx Instructions: Take with 100 mg tab daily. lamotrigine 100 mg Tablet 200 mg PO BEDTIME 30 Days Qty: 60 0RF Stand Alone Forms: Patient Portal Discharge page
--- NOTE | 2022-01-28 09:24 | PC.NURSE ---
Adelina did not show up to the program this morning as she stated she is sick and her son has the flu. [facility] staff is aware.
--- NOTE | 2022-02-04 16:16 | HO.PHPIOP ---
Case opened in treatment team.
--- NOTE | 2022-02-05 12:05 | HO.PHPPROGNO ---
Subjective Subjective Date of Service: 02/05/22 Reason For Visit: bipolar Medical Problems Affecting Mental Status: No Interim History: Describes mood as ?good, more stable ?. No SI, HI, feels safe. Has been taking lithium 900 mg, states it is working well. Stopped the extra 150mg of lithium, as she has run out. Zofran has helped, no more vomiting after taking meds. Stop gabapentin. More involved with kids lately. Started new job part-time, likes it. Feels stable for discharge from [facility] at this time. Medication Compliance: Yes Side effects from medications: No Attending Groups: Yes Review of Systems Acute medical concerns: No Medical Review of Systems: unchanged Review of Systems Review of Systems Nausea / vomiting has resolved Yes all other systems are reviewed and are negative Constitutional: Reports no additional constitutional complaints Mental Status Exam Mental Status Exam Narrative: NAD Patient Appearance: Well Grooomed and Appropriate Patient Orientation: Person, Place, Time and Situation Level of Consciousness: Appropriate and Alert Patient Behavior: Appropriate, Cooperative and Good Eye Contact Mood Description: Happy and Appropriate Affect Description: Happy and Appropriate Patient Cognition Impaired: No Ability to Follow Directions: Excellent Speech Pattern: Clear, Appropriate and Coherent Memory Description: Intact Hallucinations: None Delusions: Not Present Thought Process: Intact and Linear Thought Content: positive for Intact Judgement: Good Diagnostics Vital Signs (24Hr): BMI result Body Mass Index 23.8 Assessment & Plan Assessment & Plan (1) Bipolar disorder current episode depressed: Status: Acute Code(s): F31.30 - Bipolar disorder, current episode depressed, mild or moderate severity, unspecified Assessment and Plan: Reports mood is ?good, more stable ?. No SI/HI, no safety concerns. 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 Continues with lithium 900 mg at this time, no longer taking the 150 mg in addition. We discussed this at length. When the extra 150 mg was ordered, she had been vomiting daily after taking meds. She was advised at this time, to obtain lithium level as outpatient, and proceed with outpatient provider accordingly. Feels stable for discharge at this time. (2) Cannabis dependence: Status: Acute Code(s): F12.20 - Cannabis dependence, uncomplicated Assessment and Plan: No longer taking the gabapentin, does not feel need. Used cannabis 1 day recently, states that she did not like it, and has made decision to no longer use it. Plan 1. Patient appears stable for discharge from [facility] at this time. 2. Follow-up with outpatient providers going forward. Patient educated on: diagnosis, medication risk/benefits, substance abuse and therapeutic strategies Informed Consent: understands Reason for contiued partial hosp. stay Substantial Risk for: stable for discharge Certification I certify that partial hospital treatment is medically necessary due to the symptoms and problems resulting from the patient's mental illness and the failure to treat the patient at the partial hospital level of care would likely result in the patient requiring inpatient psychiatric care which could not be prevented at a less intensive level of care. Total time managing care of this patient today __20__ minutes. Discharge Plan Discharge Attending provider: Patrick Rivas Medications: New ondansetron HCl 4 mg tablet 4 mg PO Q8H PRN (Reason: nausea and vomiting) Qty: 30 0RF Discontinued clonidine HCl 0.1 mg Tablet 0.1 mg PO Q4H PRN (Reason: anxiety/insomnia) 30 Days Qty: 30 0RF Protocol: Hold for SBP< HOLD for SBP < : 90 Rx Instructions: May also take only 1/2 tablet No Action lithium carbonate 300 mg capsule 900 mg PO BEDTIME zolpidem 5 mg tablet 1 tab PO BEDTIME PRN (Reason: insomnia) clonazepam 0.5 mg tablet 1 tab PO BID PRN (Reason: Anxiety) Rx Instructions: Patient stated she takes as needed for anxiety. Last took 2 weeks ago. sertraline 50 mg Tablet 150 mg PO DAILY 30 Days Qty: 90 0RF Rx Instructions: Take with 100 mg tab daily. lamotrigine 100 mg Tablet 200 mg PO BEDTIME 30 Days Qty: 60 0RF Stand Alone Forms: Patient Portal Discharge page Patient Education: Gabapentin (By mouth), Bipolar Disorder (ED), Bipolar Disorder (DC), Anxiety (GEN)
--- NOTE | 2022-02-09 14:01 | PC.NURSE ---
Discharge Note: Patient discharged on 02/05/22. Routine discharge. Discharge teaching done, patient states understanding. 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 Patient reports understanding. Patient denies SI/HI with no plan or intent. Patient discharged to out-patient providers. Discharge medication list faxed to outside providers.
== END 2022-02-05 23:59 | disposition home or self-care (01) ==
LOC: HO.PHPA 11:30
PROVIDERS: Visit Provider Psychiatry & Neurology Psychiatry
DX: F31.30 Bipolar disorder, current episode depressed, mild or moderate severity, unspecified (principal); F12.20 Cannabis dependence, uncomplicated; Z79.899 Other long term (current) drug therapy
CPT/HCPCS: 80307; 90791; 90853

== ENCOUNTER 2022-06-04 13:54 | Outpatient (REF) | payer OTHER, SELFPAY ==
[2022-06-04 14:21] LABS: Lithium 0.57 mmol/L (0.60-1.20)
[2022-06-04 14:36] LABS: Alanine Aminotransferase 8 U/L (0-31); Albumin Level 4.4 g/dL (3.5-5.0); Alkaline Phosphatase 72 U/L (39-117); Anion Gap 11 (12-20); Aspartate Amino Transferase 12 U/L (5-31); Bilirubin Total 0.4 mg/dL (0.0-1.0); Blood Urea Nitrogen 8 mg/dL (9-16); Calcium 9.9 mg/dL (8.4-10.2); Carbon Dioxide 28 mmol/L (22-29); Chloride 105 mmol/L (96-108); Estimated Glomerular Filt Rate > 60; Glucose Random 86 mg/dL (60-115); Potassium 4.1 mmol/L (3.3-5.1); Sodium 140 mmol/L (135-145)
[2022-06-04 14:50] LABS: Free T4 (Free Thyroxine) 0.87 ng/dL (0.71-1.85); Thyroid Stimulating Hormone 2.23 uIU/mL (0.32-4.0)
== END 2022-06-04 13:55 | disposition home or self-care (01) ==
LOC: HO.LAB 13:54
PROVIDERS: PCP Family Medicine; Visit Provider Nurse Practitioner Psychiatric/Mental Health
DX: F31.30 Bipolar disorder, current episode depressed, mild or moderate severity, unspecified (principal)
CPT/HCPCS: 36415; 80053; 80178; 84439; 84443

== ENCOUNTER 2022-06-08 10:24 | Outpatient (REF) | payer OTHER, SELFPAY ==
[2022-06-08 11:04] LABS: Lithium 0.73 mmol/L (0.60-1.20)
== END 2022-06-08 10:25 | disposition home or self-care (01) ==
LOC: HO.LAB 10:24
PROVIDERS: PCP Family Medicine; Visit Provider Nurse Practitioner Psychiatric/Mental Health
DX: F31.9 Bipolar disorder, unspecified (principal)
CPT/HCPCS: 36415; 80178

== ENCOUNTER 2022-06-22 13:15 | Outpatient (RCR) | payer OTHER, SELFPAY ==
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
--- NOTE | 2022-06-10 16:00 | HO.PHP ---
Clients case was reviewed and opened today in treatment team.
--- NOTE | 2022-06-11 10:51 | P.PNPSP_ITS ---
Subjective Subjective Date of Service: 06/11/22 Reason For Visit: bipolar d/o Medical Problems Affecting Mental Status: No Interim History: Reports that she stopped using cannabis 2 days ago, cold turkey. Denies any cravings or withdrawals at this time. Reports that mood feels more stable, the recent increase of sertraline has been helping with management of anxiety and OCD type symptoms. Continues with some obsessive thoughts, more able to stop rather than act out compulsion. Less depressed, less anxious. No SI, feels safe. Saw GI doctor yesterday, has endoscopy scheduled. Finding groups helpful. Medication Compliance: Yes Side effects from medications: No Attending Groups: Yes Review of Systems Acute medical concerns: No Medical Review of Systems: unchanged Review of Systems Review of Systems Yes all other systems are reviewed and are negative Constitutional: Reports no additional constitutional complaints Mental Status Exam Mental Status Exam Narrative: NAD Patient Appearance: Well Grooomed and Appropriate Patient Orientation: Person, Place, Time and Situation Level of Consciousness: Appropriate and Alert Patient Behavior: Appropriate, Cooperative and Good Eye Contact Mood Description: Depressed (less) and Anxious (less) Affect Description: Depressed (appears improving) and Anxious (less ) Patient Cognition Impaired: No Ability to Follow Directions: Excellent Speech Pattern: Clear, Coherent and Excessive Memory Description: Intact Hallucinations: None Delusions: Not Present Thought Process: Intact Thought Content: positive for Obsessional Thoughts (improved) Depressive Symptoms: Increased Anxiety, Increased Irritability, Difficulty Sleeping, Loss of Int. in Activity and Loss of Energy Judgement: Fair Assessment & Plan Assessment & Plan (1) Bipolar disorder current episode depressed: Status: Acute Code(s): F31.30 - Bipolar disorder, current episode depressed, mild or moderate severity, unspecified Assessment and Plan: Reports that she stopped using cannabis 2 days ago, cold turkey. Denies any cravings or withdrawals at this time. Reports that mood feels more stable, the recent increase of sertraline has been helping with management of anxiety and OCD type symptoms. Continues with some obsessive thoughts, more able to stop rather than act out compulsion. Reviewed most recent lithium level, it is within therapeutic range. Although her depression and anxiety are still present, she states that they are beginning to improve. No SI, feels safe. Saw GI doctor yesterday, has endoscopy scheduled. She feels satisfied that they are working to give her an adequate diagnosis and treatment regarding her GI issues. Finding groups helpful. (2) Cannabis dependence: Status: Acute Code(s): F12.20 - Cannabis dependence, uncomplicated Plan 1. Continue with current [facility] plan of care. 2. Continue with current medications as prescribed. 3. Follow-up as per protocol. Patient educated on: diagnosis, medication risk/benefits, substance abuse and therapeutic strategies Informed Consent: understands Reason for contiued partial hosp. stay Substantial Risk for: harm to self, inability to function, rapid decompensation and med/psych decompensation Certification I certify that partial hospital treatment is medically necessary due to the symptoms and problems resulting from the patient's mental illness and the failure to treat the patient at the partial hospital level of care would likely result in the patient requiring inpatient psychiatric care which could not be prevented at a less intensive level of care. Total time managing care of this patient today ___20_ minutes. Discharge Plan Discharge Attending provider: Patrick Rivas Medications: No Action lithium carbonate 300 mg capsule 300 mg PO BEDTIME Rx Instructions: Take with 600 mg tab lithium carbonate 600 mg capsule 600 mg PO BEDTIME ondansetron HCl 4 mg tablet 4 mg PO TID PRN (Reason: nausea and vomiting) Rx Instructions: For 5 days prn prochlorperazine maleate 5 mg tablet 5 mg PO Q6H PRN (Reason: nausea) omeprazole 20 mg capsule,delayed release(DR/EC) 20 mg PO DAILY sertraline 100 mg tablet 150 mg PO DAILY
[2022-06-11 11:22] VITALS: BP 100/62; PULSE 64; TEMP 37.1
--- NOTE | 2022-06-18 12:15 | HO.PHPPROGNO ---
Subjective Subjective Date of Service: 06/18/22 Reason For Visit: bipolar d/o Medical Problems Affecting Mental Status: No Interim History: Describes mood as ?stable ?. Denies any lauren, hypomania, depression currently. States had 1 brief episode a few days ago where she stayed up all night, felt ?full of energy ?in the morning. States that it subsided after that 1 day. No SI, no safety concerns. Less OCD type symptoms. Stop using cannabis 3 days ago. Denies any withdrawals, some cravings are present. Medication Compliance: Yes Side effects from medications: No Attending Groups: Yes Review of Systems Acute medical concerns: No Medical Review of Systems: unchanged Review of Systems Review of Systems Yes all other systems are reviewed and are negative Constitutional: Reports no additional constitutional complaints Mental Status Exam Mental Status Exam Narrative: NAD Patient Appearance: Well Grooomed and Appropriate Patient Orientation: Person, Place, Time and Situation Level of Consciousness: Appropriate and Alert Patient Behavior: Appropriate, Cooperative and Good Eye Contact Mood Description: Appropriate Affect Description: Anxious (less ) Patient Cognition Impaired: No Ability to Follow Directions: Excellent Speech Pattern: Clear and Coherent Memory Description: Intact Hallucinations: None Delusions: Not Present Thought Process: Intact Depressive Symptoms: Increased Anxiety and Difficulty Sleeping Judgement: Fair Assessment & Plan Assessment & Plan (1) Bipolar 1 disorder: Status: Acute Code(s): F31.9 - Bipolar disorder, unspecified Assessment and Plan: Describes mood as ?stable ?. States that overall she is feeling she is doing fairly well. Some anxiety regarding weekend, plans to take her children to the park. Denies any lauren, hypomania, depression currently. States had 1 brief episode a few days ago where she stayed up all night, felt ?full of energy ?in the morning. States that it subsided after that 1 day. No SI, no safety concerns. Less OCD type symptoms. Finding the increased sertraline dose that her outpatient provider had done recently to 200 mg daily is helping manage the symptoms. Stop using cannabis 3 days ago. Denies any withdrawals, some cravings are present. Discussed ways to prevent triggers, such as caring sugarless lollipops, breaking routine of when she would use. (2) Cannabis dependence: Status: Acute Code(s): F12.20 - Cannabis dependence, uncomplicated Plan 1. Continue with current [facility] plan of care. 2. Continue with medications as currently prescribed by outpatient provider. 3. Risk / relapse prevention discussion. 4. Follow-up as per protocol. Patient educated on: diagnosis, medication risk/benefits, substance abuse and therapeutic strategies Informed Consent: understands Reason for contiued partial hosp. stay Substantial Risk for: inability to function and rapid decompensation Certification I certify that partial hospital treatment is medically necessary due to the symptoms and problems resulting from the patient's mental illness and the failure to treat the patient at the partial hospital level of care would likely result in the patient requiring inpatient psychiatric care which could not be prevented at a less intensive level of care. Total time managing care of this patient today __20__ minutes. Discharge Plan Discharge Attending provider: Patrick Rivas Medications: No Action lithium carbonate 300 mg capsule 300 mg PO BEDTIME Rx Instructions: Take with 600 mg tab lithium carbonate 600 mg capsule 600 mg PO BEDTIME ondansetron HCl 4 mg tablet 4 mg PO TID PRN (Reason: nausea and vomiting) Rx Instructions: For 5 days prn prochlorperazine maleate 5 mg tablet 5 mg PO Q6H PRN (Reason: nausea) omeprazole 20 mg capsule,delayed release(DR/EC) 20 mg PO DAILY sertraline 100 mg tablet 150 mg PO DAILY Stand Alone Forms: Patient Portal Discharge page
--- NOTE | 2022-06-22 12:16 | HO.PHPPROGNO ---
Subjective Subjective Date of Service: 06/22/22 Reason For Visit: bipolar d/o Medical Problems Affecting Mental Status: No Interim History: C/o cannabis withdrawal symptoms, has not smoked in several days. Experiencing increased anxiety, nausea, vomiting, decreased appetite. Described mood as decent, motivated, happy . Denies SI/HI, no safety concerns. Has found PHP helpful. Feels stable for discharge today. Sees her outpatient psychiatric provider tomorrow at 10:00am. Medication Compliance: Yes Side effects from medications: No Attending Groups: Yes Review of Systems Acute medical concerns: No Medical Review of Systems: changed Review of Systems Review of Systems Reports cannabis withdrawal sx after cessation several days ago. Constitutional: Reports anorexia, Reports malaise and Reports poor appetite Gastrointestinal: Reports nausea and Reports vomiting Mental Status Exam Mental Status Exam Narrative: NAD Patient Appearance: Well Grooomed and Appropriate Patient Orientation: Person, Place, Time and Situation Level of Consciousness: Appropriate and Alert Patient Behavior: Appropriate, Cooperative and Good Eye Contact Mood Description: Calm and Happy Affect Description: Appropriate and Anxious (less ) Patient Cognition Impaired: No Ability to Follow Directions: Excellent Speech Pattern: Clear and Coherent Memory Description: Intact Hallucinations: None Delusions: Not Present Thought Process: Intact Depressive Symptoms: Increased Anxiety Judgement: Good Assessment & Plan Assessment & Plan (1) Bipolar 1 disorder: Status: Acute Code(s): F31.9 - Bipolar disorder, unspecified Assessment and Plan: Reports mood stable, states she is motivated, happy. Has found program helpful. Has had some N+V yesterday and today, reviewed importance of proper nutrition and hydration while taking lithium, risks of S/E such as toxicity if N+V continues. Stated she understood. No SI/HI, no safety concerns. (2) Cannabis dependence: Status: Acute Code(s): F12.20 - Cannabis dependence, uncomplicated Assessment and Plan: Abrupt cessation of cannabis several days ago, exp N+V, anxiety r/t withdrawals. Has experienced withdrawals with abrupt cessation in the past, has found low dose gabapentin helpful. Discussed adding a short supply prn to help wigth sx managment. Plan 1. Add gabapentin 100mg BID prn for withdrawal symptoms. 7-day script sent. 2. Appears stable for discharge from [facility] at this time. 3. Patient to f/u with outpatient providers going forward. Patient educated on: diagnosis, medication risk/benefits, substance abuse and therapeutic strategies Informed Consent: understands Reason for contiued partial hosp. stay Substantial Risk for: stable for discharge Certification I certify that partial hospital treatment is medically necessary due to the symptoms and problems resulting from the patient's mental illness and the failure to treat the patient at the partial hospital level of care would likely result in the patient requiring inpatient psychiatric care which could not be prevented at a less intensive level of care. Total time managing care of this patient today ___20_ minutes. Discharge Plan Discharge Attending provider: Patrick Rivas Medications: New gabapentin 100 mg capsule 100 mg PO BID PRN (Reason: withdrawal symptoms) 7 Days Qty: 14 0RF No Action lithium carbonate 300 mg capsule 300 mg PO BEDTIME Rx Instructions: Take with 600 mg tab lithium carbonate 600 mg capsule 600 mg PO BEDTIME ondansetron HCl 4 mg tablet 4 mg PO TID PRN (Reason: nausea and vomiting) Rx Instructions: For 5 days prn prochlorperazine maleate 5 mg tablet 5 mg PO Q6H PRN (Reason: nausea) omeprazole 20 mg capsule,delayed release(DR/EC) 20 mg PO DAILY sertraline 100 mg tablet 150 mg PO DAILY Stand Alone Forms: Patient Portal Discharge page Patient Education: Bipolar Disorder (DC), Cannabis Abuse (DC)
--- NOTE | 2022-06-23 08:32 | HO.PHP ---
A message was left with Adelina MASSEYSW re client dc from program
== END 2022-06-22 23:59 | disposition home or self-care (01) ==
LOC: HO.PHPA 13:15
PROVIDERS: Visit Provider Psychiatry & Neurology Psychiatry
DX: F31.9 Bipolar disorder, unspecified (principal); F12.20 Cannabis dependence, uncomplicated; Z79.899 Other long term (current) drug therapy
CPT/HCPCS: 90791; 90853

== ENCOUNTER → 2024-11-01 12:15 | Outpatient (BNV) | payer OTHER, SELFPAY | PROVIDERS: Visit Provider Psychiatry & Neurology Psychiatry | DX: F31.9 Bipolar disorder, unspecified (principal); F31.30 Bipolar disorder, current episode depressed, mild or moderate severity, unspecified | CPT/HCPCS: 90792 ==

== ENCOUNTER 2024-11-13 11:30 | Outpatient (RCR) | payer OTHER, SELFPAY ==
[2024-10-31 09:47] VITALS: BMI 29.1
[2024-10-31 09:48] VITALS: BP 118/70; PULSE 80; TEMP 36.8
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
--- NOTE | 2024-11-01 15:21 | HO.PHP ---
Client's case was opened and reviewed in teams.
--- NOTE | 2024-11-13 19:33 | HO.PHPPROGNO ---
Subjective Subjective Date of Service: 11/13/24 Reason For Visit: bipolar Interim History: Patient seen for follow-up, anticipating discharge at the end of program today.? Mood is good felt the program was very helpful. Denies any h/h/SI. Sleeping well. Reports no acute issues or concerns. Medication compliant, medications well-tolerated. Denies any adverse effects.? She reports that her outpatient provider is out on maternity and wont be back intil March, in the interim the other providers at the practice will be refilling her medications. She also has an outpatient therapist. Mood is stable.? Denies any hopelessness or SI. Denies thoughts of harming self or others at this time. Denies any aggressive ideation or HI. Denies any paranoia or AH or VH. Sleep, appetite, energy stable. Medication Compliance: Yes Side effects from medications: No Attending Groups: Yes Review of Systems Acute medical concerns: No Medical Review of Systems: changed Review of Systems Review of Systems Reports cannabis withdrawal sx after cessation several days ago. Constitutional: Reports anorexia, Reports malaise and Reports poor appetite Gastrointestinal: Reports nausea and Reports vomiting Mental Status Exam Mental Status Exam Narrative: NAD Patient Appearance: Well Grooomed and Appropriate Patient Orientation: Person, Place, Time and Situation Level of Consciousness: Appropriate and Alert Patient Behavior: Appropriate, Cooperative and Good Eye Contact Mood Description: Calm ( good ) Affect Description: Appropriate Patient Cognition Impaired: No Ability to Follow Directions: Excellent Speech Pattern: Clear and Coherent Memory Description: Intact Hallucinations: None Delusions: Not Present Thought Process: Intact Depressive Symptoms: Increased Anxiety Judgement: Good Diagnostics Vital Signs (24Hr): BMI result Body Mass Index 29.1 Assessment & Plan Assessment & Plan (1) Bipolar disorder current episode depressed: Status: Acute Code(s): F31.30 - Bipolar disorder, current episode depressed, mild or moderate severity, unspecified (2) Cannabis dependence: Status: Acute Code(s): F12.20 - Cannabis dependence, uncomplicated Plan Discharge from [facility] Continue regular medications? Refills sent to pharmacy Will defer further medication management to outpatient provider *Safety plan reviewed *Discharge diagnoses, treatment course, discharge plan have been reviewed with patient (including medication regime, medication management, potential side effects) as well as treatment rationale were also revisited *Discharge paperwork signed and given to patient, copy sent for scanning to chart Patient educated on: diagnosis and medication risk/benefits Informed Consent: understands Reason for contiued partial hosp. stay Substantial Risk for: stable for discharge Certification I certify that partial hospital treatment is medically necessary due to the symptoms and problems resulting from the patient's mental illness and the failure to treat the patient at the partial hospital level of care would likely result in the patient requiring inpatient psychiatric care which could not be prevented at a less intensive level of care. Total time managing care of this patient today _30___ minutes. Discharge Plan Discharge Attending provider: Lyric Chávez Medications: Continued lithium carbonate 300 mg capsule 600 mg PO DAILY Rx Instructions: Take two tabs daily. sertraline 100 mg tablet 150 mg PO DAILY Rx Instructions: Take one and a half tab daily. lamotrigine [Lamictal] 200 mg Tablet 200 mg PO DAILY amitriptyline 50 mg Tablet 50 mg PO DAILY hydroxyzine pamoate 25 mg capsule 25 - 50 mg PO BID PRN (Reason: anxiety) Patient Education: Bipolar Disorder (ED), Bipolar Disorder (DC), Depression (DC) Print Language: Slovenian
== END 2024-11-13 23:59 | disposition home or self-care (01) ==
LOC: HO.PHPA 11:30
PROVIDERS: Visit Provider Psychiatry & Neurology Psychiatry
DX: F31.30 Bipolar disorder, current episode depressed, mild or moderate severity, unspecified (principal); F12.20 Cannabis dependence, uncomplicated; Z79.899 Other long term (current) drug therapy
CPT/HCPCS: 90791; 90853